=== PATIENT | male | born 1945 | race Caucasian/White ===

== ENCOUNTER 2017-01-01 13:48 | Observation (INO) | payer OTHER ==
[~2017-01-01] VITALS: Ht 182.9 cm; Wt 95.8 kg
[~2017-01-01 13:48] MED LIST: ASPI81 PO; BACL10TA PO; CANA300T PO; FAMO1CHW PO; FINA5TAB2 PO; GLIP5TAB8 PO; GLUCTAB PO; LIBRAX PO; LISI2.5T3 PO; LORTA10 PO; OMEP20CA2 PO; PLAV75TA29 PO; SIMV20TA PO; TOPR50TA PO; [UNRECOGNIZED DRUG - CODE] SL
[2017-01-01 13:51] VITALS: BP 124/64; PULSE 75; RESP 16; TEMP 98.4; O2SAT 96
[2017-01-01] MEDS ORDERED: METO50TA PO (14:13)
[2017-01-01] MEDS ORDERED: HYDR-3535 PO (14:13)
[2017-01-01] MEDS ORDERED: METF1000 PO (14:13)
--- NOTE | 2017-01-01 14:15 | PD ---
HPI Chief Complaint: Skin Problem Time Seen by Provider: 14:08 Travel History International Travel<30 days: No Contact w/Intl Traveler<30days: No Traveled to known affect area: No History of Present Illness HPI 71-year-old male with history of diabetes and peripheral neuropathy presents to the emergency room for evaluation of his toe after stepping on a nail 3 times yesterday. Patient was wearing Crocs when he stepped on a lorenzo nail. He did not realize that he had stepped on it until he saw blood coming from his shoe. When he removed the shoe, he noticed 3 puncture wounds in the proximal, plantar great toe. He denies significant pain because of history of neuropathy. Patient states he noticed great increase in redness, swelling, and bruising just overnight. He saw his bankruptcy manager, Dr. Constantino, 3 days ago for routine debridement of an ulcer on the same toe distally. He called the office today after realizing the injury and they recommended he come to the emergency room because Dr. Constantino is not in his office until tomorrow. Last tetanus was 2007. Denies fever, chills, nausea, and vomiting. Of note, patient reports history of foreign bodies to the distal left great toe. PFSH Past Medical History Hx Anticoagulant Therapy: Yes (PLAVIX) Autoimmune Disease: No Anxiety: No Depression: No Cancer: No Cardiovascular Problems: Yes (STENT 2006, TRIPLE BIPASS 1995) High Cholesterol: Yes Chest Pain: No Diabetes: Yes (METFORMIN) Diminished Hearing: No Endocrine: Yes Gastrointestinal Disorders: No GERD: Yes Glaucoma: No Genitourinary: Yes (ENLARGED PROSTRATE, INCONTANCE) Hepatitis: No Hiatal Hernia: No Hypertension: Yes Musculoskeletal: No Neurologic: No Psychiatric: No Integumentary: Yes (WOUND ON RIGHT GREAT TOE) Sleep Apnea: Yes Thyroid Disease: No Past Surgical History Appendectomy: Yes Body Medical Devices: BLADDER STIMULATOR Cholecystectomy: Yes Coronary Artery Bypass Graft: Yes (X3 1995) Thoracic Surgery: Yes (CABG) Other Surgery: Yes (RECTAL TUMOR 07/09) Social History Alcohol Use: Yes (RARE) Tobacco Use: No Substance Use: No Allergies-Medications (Allergen,Severity, Reaction): Coded Allergies: No Known Allergies (Verified , 01/01/17) Reported Meds & Prescriptions Reported Meds & Active Scripts Active Reported Lortab (Hydrocodone-Acetaminophen) 10-325 Mg Tab 1 Tab PO Q6H PRN Metoprolol Tartrate 50 Mg Tab 50 Mg PO BID Metformin (Metformin HCl) 1,000 Mg Tab 1,000 Mg PO BIDPC With meals Plavix (Clopidogrel Bisulfate) 75 Mg Tab 75 Mg PO DAILY Duo Fusion (Famotidine-Calcium) 10-800 Mg Tab 10-800 Mg PO BID Nitroglycerin SL (Nitroglycerin) 0.6 Mg Subl 0.6 Mg SL DIRECTED PRN ONE TABLET UNDER THE TONGUE NEEDED FOR CHEST PAIN, MAY REPEAT EVERY FIVE MINUTES FOR A TOTAL OF 3 DOSES OR CALL 911 IF NO RELIEF Baclofen 10 Mg Tab 10 Mg PO BID Glipizide 5 Mg Tab 10 Mg PO BIDAC Take 30 minutes before a meal Lisinopril 2.5 Mg Tab 2.5 Mg PO DAILY Simvastatin 20 Mg Tab 20 Mg PO DAILY Aspirin 81 Mg Tab 81 Mg PO DAILY Review of Systems Except as stated in HPI: all other systems reviewed are Neg Physical Exam Narrative GENERAL: Well-nourished, well-developed male in no acute distress. Afebrile. Ambulatory. SKIN: Focused skin assessment warm/dry. There is an indurated area in the proximal, plantar left great toe with surrounding erythema and ecchymosis. The tissue is slightly macerated. No fluctuance. There is a zone of inflammation around with lymphangitis extending up to the distal ankle. Chronic healing ulcer on the distal left toe. HEAD: Normocephalic. EYES: No scleral icterus. No injection or drainage. NECK: Supple, trachea midline. No JVD or lymphadenopathy. CARDIOVASCULAR: Regular rate and rhythm without murmurs, gallops, or rubs. RESPIRATORY: Breath sounds equal bilaterally. No accessory muscle use. EXTREMITY: Limited range of motion of the left great toe secondary to pain and swelling. Less than 2 second capillary refill distally. Moderate to severe edema of the left toe. Data Data Last Documented VS Vital Signs Date Time Temp Pulse Resp B/P Pulse Ox O2 Delivery O2 Flow Rate FiO2 01/01/17 13:51 98.4 75 16 124/64 96 Orders Complete Blood Count With Diff (01/01/17 14:24) Iv Access Insert/Monitor (01/01/17 14:24) Tetanus/Diphtheria Tox Adult (Tetanus/Di (01/01/17 14:30) Comprehensive Metabolic Panel (01/01/17 14:24) Toe (Min 2vws) (01/01/17 ) Vancomycin Inj (Vancomycin Inj) (01/01/17 14:30) Levofloxacin 750 Mg Premix Inj (Levaquin (01/01/17 14:30) Place In Observation (01/01/17 ) Vital Signs (Adult) Q4H (01/01/17 16:02) Activity Bed Rest With Brp (01/01/17 16:02) Intake + Output GALILEO.QSHIFT (01/01/17 16:02) Diet Heart Healthy (01/01/17 Dinner) Sodium Chloride 0.9% Flush (Ns Flush) (01/01/17 16:15) Sodium Chloride 0.9% Flush (Ns Flush) (01/01/17 21:00) Ondansetron Inj (Zofran Inj) (01/01/17 16:15) Basic Metabolic Panel (Bmp) (01/02/17 06:00) Complete Blood Count With Diff (01/02/17 06:00) Enoxaparin Inj (Lovenox Inj) (01/01/17 18:00) Naloxone Inj (Narcan Inj) (01/01/17 16:15) Docusate Sodium-Senna (Kay-Colace) (01/01/17 21:00) Magnesium Hydroxide Liq (Milk Of Magnesi (01/01/17 21:00) Sennosides (Senokot) (01/01/17 21:00) Bisacodyl Supp (Dulcolax Supp) (01/01/17 17:00) Lactulose Liq (Lactulose Liq) (01/01/17 16:15) Admit Order (Ed Use Only) (01/01/17 16:04) Labs Laboratory Tests Test 01/01/17 14:30 White Blood Count 11.3 TH/MM3 Red Blood Count 5.00 MIL/MM3 Hemoglobin 14.4 GM/DL Hematocrit 42.5 % Mean Corpuscular Volume 85.0 FL Mean Corpuscular Hemoglobin 28.7 PG Mean Corpuscular Hemoglobin 33.8 % Concent Red Cell Distribution Width 13.1 % Platelet Count 158 TH/MM3 Mean Platelet Volume 8.9 FL Neutrophils (%) (Auto) 67.5 % Lymphocytes (%) (Auto) 19.0 % Monocytes (%) (Auto) 11.4 % Eosinophils (%) (Auto) 1.2 % Basophils (%) (Auto) 0.9 % Neutrophils # (Auto) 7.7 TH/MM3 Lymphocytes # (Auto) 2.1 TH/MM3 Monocytes # (Auto) 1.3 TH/MM3 Eosinophils # (Auto) 0.1 TH/MM3 Basophils # (Auto) 0.1 TH/MM3 CBC Comment DIFF FINAL Differential Comment Sodium Level 137 MEQ/L Potassium Level 4.4 MEQ/L Chloride Level 102 MEQ/L Carbon Dioxide Level 27.1 MEQ/L Anion Gap 8 MEQ/L Blood Urea Nitrogen 20 MG/DL Creatinine 1.20 MG/DL Estimat Glomerular Filtration 60 ML/MIN Rate Random Glucose 160 MG/DL Calcium Level 8.9 MG/DL Total Bilirubin 2.1 MG/DL Aspartate Amino Transf 18 U/L (AST/SGOT) Alanine Aminotransferase 22 U/L (ALT/SGPT) Alkaline Phosphatase 72 U/L Total Protein 7.3 GM/DL Albumin 3.9 GM/DL [facility] Medical Decision Making Medical Screen Exam Complete: Yes Emergency Medical Condition: Yes Medical Record Reviewed: Yes Differential Diagnosis MRSA, diabetic foot infection, puncture wound Narrative Course 71-year-old male with history of diabetes, peripheral neuropathy, and chronic toe ulcer presents to the emergency room for evaluation of left great toe infection after stepping on a nail 3 times yesterday. Physical exam reveals macerated tissue over the plantar, proximal left great toe with extreme edema, erythema, and ecchymosis surrounding. Lymphangitis is extending up the foot to the ankle. Patient was updated on tetanus. Given his comorbidity of diabetes and chronic diabetic foot ulcer on the same toe, my attending physician and I believe he needs to be brought in for IV antibiotics. IV access established and basic labs obtained. CBC is essentially unremarkable except for very slight leukocytosis of 11.3. CMP is unremarkable other than slightly elevated blood sugar. Patient was given IV vancomycin and Levaquin (because nail went through his shoe) in the emergency room. Tetanus was updated. He will be admitted to hospitalist with consult to podiatry. I spoke to Dr. Gusman who agrees to admit this patient to her service. Physician Communication Physician Communication I spoke to Dr. Gusman who has accepted this patient to her service. Diagnosis Primary Impression: Toe infection Condition: Stable Madhavi Arvizu Jan 01, 2017 14:15
[2017-01-01] MEDS ORDERED: LEVOFLOXACIN 750 MG PREMIX INJ 150 ML IV ONE (14:30)
[2017-01-01] MEDS ORDERED: VANCOMYCIN INJ 1,250 MG in SODIUM CHLOR 0.9% 250 ML INJ 250 ML IV ONE (14:30)
[2017-01-01] MEDS ORDERED: TETANUS/DIPHTHERIA TOXOID ADULT 0.5 ML VIAL IM ONE (14:30)
[2017-01-01 14:49] LABS: AUTOMATED NEUTROPHIL # 7.7 TH/MM3 (1.8-7.7); BASOPHIL # 0.1 TH/MM3 (0-0.2); BASOPHIL % 0.9 % (0.0-2.0); EOSINOPHIL # 0.1 TH/MM3 (0-0.4); EOSINOPHIL % 1.2 % (0.0-4.0); HEMATOCRIT 42.5 % (39.0-51.0); HEMO FLAGS DIFF FINAL; LYMPHOCYTE # 2.1 TH/MM3 (1.0-4.8); MEAN CORPUSCULAR HEMOGLOBIN 28.7 PG (27.0-34.0); MEAN CORPUSCULAR HGB CONC 33.8 % (32.0-36.0); MONO % 11.4 % (0.0-8.0); NEUT % 67.5 % (16.0-70.0); PLATELET COUNT 158 TH/MM3 (150-450); RED CELL DISTRIBUTION WIDTH 13.1 % (11.6-17.2); WHITE BLOOD COUNT 11.3 TH/MM3 (4.0-11.0)
--- NOTE | 2017-01-01 15:03 | RADRPT ---
EXAM DATE/TIME: 01/01/2017 14:36 [facility] COMPARISON: No previous studies available for comparison. EXTERNAL COMPARISON : [facility] () INDICATIONS : Patient with neruopathy of left foot stepped on lg nail on plantar surface of left great toe yes terday. Patient also has a non healing wound to the distal tip of great toe from rubbing on shoe. Jessica salinas also states he has had this foot imaged at [facility] within the last year & was told there were some foreign bodies in his left great toe. MEDICAL HISTORY : Hypercholesterolemia. Hypertension Gastroesophageal reflux disease. Diabetic, Circulatory probelm s. Sleep apnea. IBS. SURGICAL HISTORY : CABG. Appendectomy. Cholecystectomy. Cardiac catheterization with stent placement. Right shoulder. ENCOUNTER: Initial ACUITY: 2 days PAIN SCORE: 0/10 LOCATION: Left great toe. FINDINGS: There are 4 separate metallic density foreign bodies in the plantar aspect of the proximal first digi t. Soft tissue defect is seen at the tip of the digit. Osseous structures appear intact. CONCLUSION: 1. Four separate thin linear metallic density foreign bodies in the plantar aspect of the proximal fi rst digit. Nolan Ramos MD on January 01, 2017 at 14:58 Board Certified Radiologist. This report was verified electronically.
[2017-01-01 15:10] LABS: CHLORIDE 102 MEQ/L (98-107); POTASSIUM 4.4 MEQ/L (3.5-5.1); SODIUM (NA) 137 MEQ/L (136-145)
[2017-01-01 15:13] LABS: ANION GAP 8 MEQ/L (5-15); BICARBONATE 27.1 MEQ/L (21.0-32.0); BLOOD UREA NITROGEN 20 MG/DL (7-18)
[2017-01-01 15:16] LABS: ALT (GPT) 22 U/L (12-78)
[2017-01-01 15:17] LABS: AST (GOT) 18 U/L (15-37); GLOMERULAR FILTRATION RATE 60 ML/MIN (>89)
[2017-01-01 15:18] LABS: TOTAL BILIRUBIN ADULT 2.1 MG/DL (0.2-1.0)
[2017-01-01 15:19] LABS: ALKALINE PHOSPHATASE 72 U/L (45-117)
[2017-01-01] MEDS ORDERED: NALOXONE HCL 0.4 MG/ML AMP IV PRN (16:15)
[2017-01-01] MEDS ORDERED: SODIUM CHLORIDE 0.9% FLUSH 10 ML FLUSH IV FLUSH PRN (16:15)
[2017-01-01] MEDS ORDERED: ONDANSETRON HCL 4 MG/2 ML VIAL IVP PRN (16:15)
[2017-01-01] MEDS ORDERED: LACTULOSE SYRUP 20 GM/30 ML CUP PO PRN (16:15)
[2017-01-01] MEDS ORDERED: BISACODYL 10 MG SUPP RECTAL PRN (17:00)
--- NOTE | 2017-01-01 17:30 | HHI.HP ---
HPI Service [facility] Primary Care Physician Non-Staff Admission Diagnosis left toe cellulitis Diagnoses: (1) Toe infection Diagnosis: Principal Chief Complaint: Stepped on a nail 3 times Travel History International Travel<30 Days: No Contact w/Intl Traveler <30 Da: No Traveled to Known Affected Are: No History of Present Illness Written by Dean Thompson, acting as scribe for Dr. Gusman on 01/01/17 at 17: 20. 71 year-old male with known history of diabetes, hypertension, hyperlipidemia, coronary artery disease, peripheral vascular disease who presented to the hospital because of left great toe edema. Patient states that he is in normal state of health being followed by his laborer stores Dr. Constantino on a regular basis with their on Thursday for ulcer debridement. He subsequently stepped on a lg nail 3 times and started developing worsening swelling. He states that he has neuropathy so there has been no pain. Contacted his laborer stores office who recommended him to come to the hospital for evaluation. Patient was evaluated in emergency department and found to have puncture wounds on the bottom surface of his left great toe. Is recommended by the ER that the patient be admitted for further evaluation management. Patient laborer stores does return to his office tomorrow. Patient denies any fever, chills, pain. Review of Systems Integumentary: COMPLAINS OF: Abnormal pigmentation (left great toe) Except as stated in HPI: all other systems reviewed are Neg Past Family Social History Past Medical History Hypertension Hyperlipidemia Diabetes Peripheral vascular disease Coronary artery disease Affective sleep apnea Benign prostatic hypertrophy Past Surgical History Cholecystectomy Coronary artery bypass surgery Appendectomy Right shoulder surgery Rectal surgery Right foot surgery Bladder surgery with bladder stimulator Reported Medications Reported Meds & Active Scripts Active Reported Lortab (Hydrocodone-Acetaminophen) 10-325 Mg Tab 1 Tab PO Q6H PRN Metoprolol Tartrate 50 Mg Tab 50 Mg PO BID Metformin (Metformin HCl) 1,000 Mg Tab 1,000 Mg PO BIDPC With meals Plavix (Clopidogrel Bisulfate) 75 Mg Tab 75 Mg PO DAILY Duo Fusion (Famotidine-Calcium) 10-800 Mg Tab 10-800 Mg PO BID Nitroglycerin SL (Nitroglycerin) 0.6 Mg Subl 0.6 Mg SL DIRECTED PRN ONE TABLET UNDER THE TONGUE NEEDED FOR CHEST PAIN, MAY REPEAT EVERY FIVE MINUTES FOR A TOTAL OF 3 DOSES OR CALL 911 IF NO RELIEF Baclofen 10 Mg Tab 10 Mg PO BID Glipizide 5 Mg Tab 10 Mg PO BIDAC Take 30 minutes before a meal Lisinopril 2.5 Mg Tab 2.5 Mg PO DAILY Simvastatin 20 Mg Tab 20 Mg PO DAILY Aspirin 81 Mg Tab 81 Mg PO DAILY Allergies: Coded Allergies: No Known Allergies (Verified , 01/01/17) Family History Reviewed and unremarkable Social History Patient quit smoking 20 years ago, prior to that he smoked a pack a cigarettes a day while he was in the [employer]. Denies any alcohol or illicit drugs Physical Exam Vital Signs Vital Signs Date Time Temp Pulse Resp B/P Pulse Ox O2 Delivery O2 Flow Rate FiO2 01/01/17 13:51 98.4 75 16 124/64 96 Physical Exam GENERAL: Well-developed, well-nourished, in no acute distress. alert and orientated HEENT: Head is normocephalic Facial features are symmetric. Eyes: Pupils equal round reactive to light. Extraocular muscles are intact. Conjunctivae were clear. Oropharyngeal: Pharynx without any erythema edema. Tongue is midline without deviation. Buccal mucosa is moist without any masses or lesions NECK: Supple without any masses. Trachea midline no deviation. CARDIAC: Regular rhythm, regular rate. No murmurs gallops or rubs. LUNGS: Clear to auscultation bilaterally. No wheeze. No use of accessory muscles on inspiration or expiration. ABDOMEN: Soft, nontender. Nondistended. Bowel sounds heard in all 4 quadrants. Negative rebound, negative guarding EXTREMITIES: No edema, pulses are equal bilaterally. NEUROLOGY: Mood and affect appear appropriate. Cranial nerves II through XII grossly intact. Muscle strength 5/5 in upper and lower extremities bilaterally. Deep tendon reflexes are 2+ in upper and lower extremities bilaterally. LEFT LOWER EXTREMITY. Patient does have mild discoloration of the toe it is blanchable. There is an ulceration noted at the tip of the first great toe without any signs of infection. There is puncture wound noted approximately 2.5 cm from the tip of his left great toe. Pulses are bounding. There is some erythema noted on the dorsal surfaces foot between the first and second digit Laboratory Laboratory Tests Test 01/01/17 14:30 White Blood Count 11.3 Red Blood Count 5.00 Hemoglobin 14.4 Hematocrit 42.5 Mean Corpuscular Volume 85.0 Mean Corpuscular Hemoglobin 28.7 Mean Corpuscular Hemoglobin 33.8 Concent Red Cell Distribution Width 13.1 Platelet Count 158 Mean Platelet Volume 8.9 Neutrophils (%) (Auto) 67.5 Lymphocytes (%) (Auto) 19.0 Monocytes (%) (Auto) 11.4 Eosinophils (%) (Auto) 1.2 Basophils (%) (Auto) 0.9 Neutrophils # (Auto) 7.7 Lymphocytes # (Auto) 2.1 Monocytes # (Auto) 1.3 Eosinophils # (Auto) 0.1 Basophils # (Auto) 0.1 CBC Comment DIFF FINAL Differential Comment Sodium Level 137 Potassium Level 4.4 Chloride Level 102 Carbon Dioxide Level 27.1 Anion Gap 8 Blood Urea Nitrogen 20 Creatinine 1.20 Estimat Glomerular Filtration 60 Rate Random Glucose 160 Calcium Level 8.9 Total Bilirubin 2.1 Aspartate Amino Transf 18 (AST/SGOT) Alanine Aminotransferase 22 (ALT/SGPT) Alkaline Phosphatase 72 Total Protein 7.3 Albumin 3.9 Result Diagram: 01/01/17 1430 01/01/17 1430 Imaging Last Impressions Toe X-Ray 01/01/17 0000 Signed Impressions: Service Date/Time: December 14:36 - CONCLUSION: 1. Four separate thin linear metallic density foreign bodies in the plantar aspect of the proximal first digit. Nolan Ramos MD Assessment and Plan Assessment and Plan Left great toe puncture wound with cellulitis X-ray does not indicate any acute abnormality does show metallic densities Patient's laborer stores will be consulted for recommendations We'll start cefepime IV Diabetes Accu-Cheks with sliding scale insulin Hypertension, hyperlipidemia, coronary artery disease Home medications will be continued DVT prevention Subcutaneous Lovenox This note was transcribed by ena Thompson. I, Dr. Cheri Gusman personally performed the history, physical exam, and medical decision making; and confirmed the accuracy of the information in the transcribed note. Authenticated by Dr. Cheri Gusman on 01/01/17 at 17:20. Code Status Full code Discussed Condition With ER physician, patient, family bedside Dean Thompson Jan 01, 2017 17:29 Cheri Gusman MD Jan 02, 2017 16:13
[2017-01-01] MEDS: CEFEPIME INJ 2,000 MG in SODIUM CHLORIDE 0.9% INJ 100 ML IV SCH (18:05)
[2017-01-01] MEDS: ENOXAPARIN SODIUM 40 MG/0.4 ML SYRINGE SQ SCH (18:05)
[2017-01-01 18:10] VITALS: BP 109/69; PULSE 80; RESP 14; O2SAT 96
[2017-01-01 20:45] VITALS: BP 139/82; PULSE 47; RESP 20; TEMP 99.6; O2SAT 98
[2017-01-01] MEDS ORDERED: SENNOSIDES 8.6 MG TAB PO PRN (21:00)
[2017-01-01] MEDS ORDERED: MAGNESIUM HYDROXIDE SUSP 30 ML CUP PO PRN (21:00)
[2017-01-01] MEDS: DOCUSATE SODIUM 50 MG/SENNA 8.6 MG TAB PO SCH (21:00)
[2017-01-01] MEDS ORDERED: DEXTROSE 50% IN WATER 50 ML VIAL(D50) IV PRN (23:15)
[2017-01-01] MEDS ORDERED: GLUCAGON 1 MG/ML VIAL OTHER PRN (23:15)
[2017-01-01] MEDS ORDERED: BACLOFEN 10 MG TAB PO PRN (23:15)
[2017-01-01] MEDS: BACLOFEN 10 MG TAB PO PRN (23:30)
[2017-01-01] MEDS ORDERED: PILL SPLITTER OTHER PRN (23:30)
[2017-01-01] MEDS: ACETAMINOPHEN/HYDROcodone 325 MG/10 MG TAB PO PRN (23:30)
[2017-01-01] MEDS: SODIUM CHLORIDE 0.9% FLUSH 10 ML FLUSH IV FLUSH SCH (23:31)
[2017-01-02] VITALS: BP_SYST 120; BP_SYST 136; BP_DIAS 85; BP_DIAS 88; PULSE 74; RESP 20; TEMP 99.5; O2SAT 94; O2SAT 98
[2017-01-02 04:00] VITALS: BP 134/75; PULSE 76; RESP 20; TEMP 96.3; O2SAT 98
[2017-01-02] MEDS: CEFEPIME INJ 2,000 MG in SODIUM CHLORIDE 0.9% INJ 100 ML IV SCH ×2 (05:49→17:00)
[2017-01-02 06:50] LABS: AUTOMATED NEUTROPHIL # 5.6 TH/MM3 (1.8-7.7); BASOPHIL # 0.1 TH/MM3 (0-0.2); BASOPHIL % 0.7 % (0.0-2.0); EOSINOPHIL # 0.2 TH/MM3 (0-0.4); EOSINOPHIL % 1.8 % (0.0-4.0); HEMATOCRIT 42.6 % (39.0-51.0); HEMO FLAGS DIFF FINAL; LYMPH % 23.4 % (9.0-44.0); LYMPHOCYTE # 2.1 TH/MM3 (1.0-4.8); MEAN CELL VOLUME 86.5 FL (80.0-100.0); MEAN CORPUSCULAR HEMOGLOBIN 28.5 PG (27.0-34.0); MONO % 11.7 % (0.0-8.0); NEUT % 62.4 % (16.0-70.0); PLATELET COUNT 136 TH/MM3 (150-450); RED BLOOD COUNT 4.93 MIL/MM3 (4.50-5.90); RED CELL DISTRIBUTION WIDTH 13.4 % (11.6-17.2); WHITE BLOOD COUNT 9.1 TH/MM3 (4.0-11.0)
[2017-01-02 07:00] LABS: POTASSIUM 4.3 MEQ/L (3.5-5.1)
[2017-01-02] MEDS: PRAVASTATIN SOD 40 MG TAB PO SCH (08:25)
[2017-01-02] MEDS: LISINOPRIL 5 MG TAB PO SCH (08:25)
[2017-01-02] MEDS: METOPROLOL TARTRATE 50 MG TAB PO SCH ×2 (08:25→20:24)
[2017-01-02] MEDS: DOCUSATE SODIUM 50 MG/SENNA 8.6 MG TAB PO SCH ×2 (08:25→20:25)
[2017-01-02] MEDS: SODIUM CHLORIDE 0.9% FLUSH 10 ML FLUSH IV FLUSH SCH ×2 (08:26→20:28)
[2017-01-02] MEDS: ACETAMINOPHEN/HYDROcodone 325 MG/10 MG TAB PO PRN ×2 (08:26→17:05)
[2017-01-02] MEDS: INSULIN ASPART SUPPLEMENTAL SCALE SQ SCH ×4 (08:29→20:25)
[2017-01-02] MEDS ORDERED: FAMOTIDINE PO SCH (09:00)
[2017-01-02] MEDS ORDERED: [UNRECOGNIZED DRUG - OTHER] PO SCH (09:00)
[2017-01-02 09:15] VITALS: BP 142/100; PULSE 74; RESP 19; TEMP 98.6; O2SAT 95
--- NOTE | 2017-01-02 12:01 | HHI.PR ---
Subjective Remarks Written by Dean Thompson, acting as scribe for Dr. Gusman on 01/02/17 at 11: 57. The toe looks much improved. The patient and family agree that it does look better. They have been trying to contact his carrier blower office to get evaluation. He denies any fever or chills. Awaiting podiatry for recommendations. Objective Vitals Vital Signs Date Time Temp Pulse Resp B/P Pulse Ox O2 Delivery O2 Flow Rate FiO2 01/02/17 09:26 18 01/02/17 09:15 98.6 74 19 142/100 95 01/02/17 04:00 96.3 76 20 134/75 98 01/02/17 00:00 99.5 74 20 136/85 98 01/02/17 00:00 99.5 74 20 120/88 94 01/01/17 20:45 99.6 47 20 139/82 98 01/01/17 18:10 80 14 109/69 96 Room Air 01/01/17 13:51 98.4 75 16 124/64 96 I/O 01/01/17 01/01/17 01/01/17 01/02/17 01/02/17 01/02/17 07:00 15:00 23:00 07:00 15:00 23:00 Intake Total 740 ml 580 ml Balance 740 ml 580 ml Intake Oral 240 ml 480 ml IV Total 500 ml 100 ml # Voids 1 2 # Bowel Movements 1 Result Diagram: 01/02/17 0623 01/02/17 0623 Imaging Last Impressions Toe X-Ray 01/01/17 0000 Signed Impressions: Service Date/Time: December 14:36 - CONCLUSION: 1. Four separate thin linear metallic density foreign bodies in the plantar aspect of the proximal first digit. Nolan Ramos MD Objective Remarks GENERAL: Well-developed, well-nourished, alert and orientated HEENT: Head is normocephalic without any lesions or masses noted. Facial features are symmetric. Eyes: Extraocular muscles are intact. Conjunctivae were clear. NECK: Trachea midline no deviation. CARDIAC: Regular rhythm, regular rate. No murmurs gallops or rubs. LUNGS: Clear to auscultation bilaterally. No wheeze. ABDOMEN: Soft, nontender. Nondistended. Bowel sounds heard in all 4 quadrants. EXTREMITIES: No edema, pulses are equal bilaterally. NEUROLOGY: Mood and affect appear appropriate. Cranial nerves II through XII grossly intact. Moving all extremities, speech is clear LEFT LOWER EXTREMITY. Pt's great toe much improved. Erythema resolving. There is an ulceration noted at the tip of the first great toe without any signs of infection. There is puncture wound noted approximately 2.5 cm from the tip of his left great toe. Pulses are bounding. Urinary Catheter: No Vascular Central Line Catheter: No A/P Assessment and Plan Left great toe puncture wound with cellulitis X-ray does not indicate any acute abnormality does show metallic densities Patient's carrier blower was consulted for recommendations, however went to [facility] podiatry service. Awaiting recs Continue cefepime IV Diabetes Accu-Cheks with sliding scale insulin Hypertension, hyperlipidemia, coronary artery disease Home medications will be continued DVT prevention Subcutaneous Lovenox This note was transcribed by ena Thompson. I, Dr. Cheri Gusman personally performed the history, physical exam, and medical decision making; and confirmed the accuracy of the information in the transcribed note. Authenticated by Dr. Cheri Gusman on 01/02/17 at 11:57.. Dean Thompson Jan 02, 2017 12:01 Cheri Gusman MD Jan 02, 2017 16:11
[2017-01-02 12:37] VITALS: BP 133/91; PULSE 66; RESP 19; TEMP 96.6; O2SAT 99
[2017-01-02] MEDS: ENOXAPARIN SODIUM 40 MG/0.4 ML SYRINGE SQ SCH (17:00)
[2017-01-02 20:00] VITALS: BP 128/86; PULSE 68; RESP 20; TEMP 96.8; O2SAT 97
--- NOTE | 2017-01-02 21:53 | MB ---
cc: TIFFANIE LINDSEYM DATE OF CONSULTATION 01/02/17 1900 hours 1947 REASON FOR CONSULTATION Left foot wound. HISTORY OF PRESENT ILLNESS The patient is a 71-year-old male with longstanding history of diabetes, hypertension, hyperlipidemia, CAD, PVD. He presented to the hospital for left great toe edema. He is a patient of Dr. Constantino who has been seen in a regular basis for debridement. He stepped on a lg nail several times on his left hallux and presented to the ED for additional management. Six point review of systems unremarkable. PAST MEDICAL HISTORY Per HPI. PAST SURGICAL HISTORY 1. Cholecystectomy, 2. Coronary artery bypass 3. Appendectomy 4. Right shoulder surgery, 5. Rectal surgery 6. Right foot surgery, 7. Bladder surgery. MEDICATIONS 1. Lortab. 2. Metoprolol. 3. Metformin. 4. Plavix 5. . 6. Baclofen 7. Glipizide 8. Lisinopril. 9. Simvastatin. 10. Aspirin. ALLERGIES NKDA. FAMILY HISTORY Noncontributory. SOCIAL HISTORY Quit smoking 20 years ago. Denies alcohol or illicit drugs. PHYSICAL EXAMINATION Left DP and PT is diminished. RACING BOARD MARKER is less than 5 seconds. He has some bruising to the plantar sulcus of the left hallux. There is some ulceration plantarly. There is a distal ulceration of the hallux at distal tip. Both wounds are fibrogranular in nature. There is no purulence noted. No pain on range of motion. Protective sensation intact. LABORATORY DATA WBC on a 01/02/17 9.1, RBC of 4.93, H&H 14.1 and 42.6. IMAGING STUDIES Left foot x-rays completed on 01/01/17 with linear metallic foreign bodies in the distal aspect of the first digit. This is comparable to previous x-rays the patient had at [facility] in 2016. ASSESSMENT/PLAN 1. Left hallux puncture wound. 2. Diabetes 3. PVD. PLAN The patient is to get a blood flow study to rule out PVD as well as a WBC Spect scan to rule out any bony infection given his longstanding hallux wound. If his WBC scan is unremarkable and his blood flow studies are unremarkable, he can be discharged with oral antibiotics and follow up with Dr. Constantino within a week of discharge. We will continue to follow the patient while in-house. Tiffanie Lindsey DPM SR/ /8:45 PM /9:40 PM
[2017-01-02] MEDS: COLLAGENASE OINT 30 GM TUBE TOPICAL SCH (22:38)
[2017-01-03] VITALS: BP 124/68; PULSE 51; RESP 20; TEMP 97.7; O2SAT 98
[2017-01-03] MEDS: CEFEPIME INJ 2,000 MG in SODIUM CHLORIDE 0.9% INJ 100 ML IV SCH ×2 (05:49→17:33)
[2017-01-03 08:00] VITALS: BP 121/74; PULSE 63; RESP 18; TEMP 97.2; O2SAT 97
[2017-01-03] MEDS: DOCUSATE SODIUM 50 MG/SENNA 8.6 MG TAB PO SCH ×2 (08:48→20:53)
[2017-01-03] MEDS: PRAVASTATIN SOD 40 MG TAB PO SCH (08:49)
[2017-01-03] MEDS: METOPROLOL TARTRATE 50 MG TAB PO SCH ×2 (08:49→20:54)
[2017-01-03] MEDS: LISINOPRIL 5 MG TAB PO SCH (08:50)
[2017-01-03] MEDS: INSULIN ASPART SUPPLEMENTAL SCALE SQ SCH ×4 (08:54→20:33)
[2017-01-03] MEDS: COLLAGENASE OINT 30 GM TUBE TOPICAL SCH (09:00)
[2017-01-03] MEDS: ACETAMINOPHEN/HYDROcodone 325 MG/10 MG TAB PO PRN ×2 (09:07→21:07)
[2017-01-03] MEDS: SODIUM CHLORIDE 0.9% FLUSH 10 ML FLUSH IV FLUSH SCH ×2 (09:16→20:54)
--- NOTE | 2017-01-03 10:35 | HHI.PR ---
Subjective Remarks Written by Dean Thompson, acting as scribe for Dr. Gusman on 01/03/17 at 10: 33. Patient denies any new complaints. Wonders when he can go home. Eating well with normal bowel movements. Denies any pain Objective Vitals Vital Signs Date Time Temp Pulse Resp B/P Pulse Ox O2 Delivery O2 Flow Rate FiO2 01/03/17 08:00 97.2 63 18 121/74 97 01/03/17 00:00 97.7 51 20 124/68 98 01/02/17 20:00 96.8 68 20 128/86 97 01/02/17 18:05 18 01/02/17 12:37 96.6 66 19 133/91 99 I/O 01/02/17 01/02/17 01/02/17 01/03/17 01/03/17 01/03/17 07:00 15:00 23:00 07:00 15:00 23:00 Intake Total 580 ml 550 ml 400 ml 480 ml Balance 580 ml 550 ml 400 ml 480 ml Intake Oral 480 ml 550 ml 300 ml 480 ml IV Total 100 ml 100 ml # Voids 2 2 2 # Bowel Movements 1 Result Diagram: 01/02/17 0623 01/02/17 0623 Imaging Last Impressions Toe X-Ray 01/01/17 0000 Signed Impressions: Service Date/Time: December 14:36 - CONCLUSION: 1. Four separate thin linear metallic density foreign bodies in the plantar aspect of the proximal first digit. Nolan Ramos MD Objective Remarks GENERAL: Well-developed, well-nourished laying in bed HEENT: Head is normocephalic Eyes: Extraocular muscles are intact. NECK: Trachea midline no deviation. No JVD, CARDIAC: Regular rhythm, regular rate. No murmurs LUNGS: Clear to auscultation bilaterally. No wheeze. ABDOMEN: Soft, nontender. Nondistended. Negative rebound, negative guarding EXTREMITIES: No edema, moves extremities. NEUROLOGY: Mood and affect appear appropriate. Cranial nerves II through XII grossly intact. Moving all extremities, speech is clear LEFT LOWER EXTREMITY. Patient does have mild discoloration of the toe it is blanchable. There is an ulceration noted at the tip of the first great toe without any signs of infection. There is puncture wounds noted approximately 2.5 cm from the tip of his left great toe. Pulses are bounding. There was erythema noted on admission, however has resolved Urinary Catheter: No Vascular Central Line Catheter: No A/P Assessment and Plan Left great toe puncture wound with cellulitis X-ray does not indicate any acute abnormality does show metallic densities Wharf Worker following. ordered WBC scan, NICHOLAS study, if those are unremarkable that patient may be discharged with outpatient follow-up w po abx Continue cefepime IV Diabetes Accu-Cheks with sliding scale insulin Hypertension, hyperlipidemia, coronary artery disease Home medications will be continued DVT prevention Subcutaneous Lovenox This note was transcribed by ena Thompson. I, Dr. Cheri Gusman personally performed the history, physical exam, and medical decision making; and confirmed the accuracy of the information in the transcribed note. Authenticated by Dr. Cheri Gusman on 01/03/17 at 1033. Dean Thompson Jan 03, 2017 10:34 Cheri Gusman MD Jan 03, 2017 14:01
[2017-01-03 12:00] VITALS: BP 139/76; PULSE 58; RESP 20; TEMP 98.5; O2SAT 97
[2017-01-03 16:00] VITALS: BP 129/79; PULSE 60; RESP 18; TEMP 98.3; O2SAT 97
[2017-01-03] MEDS: ENOXAPARIN SODIUM 40 MG/0.4 ML SYRINGE SQ SCH (17:36)
[2017-01-03 20:00] VITALS: BP 129/67; PULSE 74; RESP 20; TEMP 98.5; O2SAT 96
[2017-01-03] MEDS: BACLOFEN 10 MG TAB PO PRN (21:06)
--- NOTE | 2017-01-03 22:59 | RADRPT ---
EXAM DATE/TIME: 01/03/2017 00:00 [facility] COMPARISON: No previous studies available for comparison. INDICATIONS : LEFT TOE CELLULITIS TECHNIQUE: Four-cuff ankle and brachial pressures were obtained. Pulse cuff waveform tracings of the ankles were recorded, and ankle-brachial indices were calculated. PRESSURES (mmHg): Brachial (arm): Right 160 Left IV SITE Ankle: Right 172 Left 170 NICHOLAS: Right 1.07 Left 1.06 PULSED CUFF WAVEFORMS: Demonstrate normal amplitude bilaterally. CONCLUSION: Unremarkable ankle brachial indices. Diomedes Ayers MD on January 03, 2017 at 22:57 Board Certified Radiologist. This report was verified electronically.
[2017-01-04] VITALS: BP 97/61; PULSE 52; RESP 20; TEMP 96.2; O2SAT 95
[2017-01-04] MEDS: CEFEPIME INJ 2,000 MG in SODIUM CHLORIDE 0.9% INJ 100 ML IV SCH (06:05)
[2017-01-04] MEDS: INSULIN ASPART SUPPLEMENTAL SCALE SQ SCH ×2 (06:09→12:39)
[2017-01-04 08:00] VITALS: BP 126/76; PULSE 65; RESP 18; TEMP 98; O2SAT 99
[2017-01-04] MEDS: PRAVASTATIN SOD 40 MG TAB PO SCH (08:56)
[2017-01-04] MEDS: METOPROLOL TARTRATE 50 MG TAB PO SCH (08:56)
[2017-01-04] MEDS: DOCUSATE SODIUM 50 MG/SENNA 8.6 MG TAB PO SCH (08:56)
[2017-01-04] MEDS: SODIUM CHLORIDE 0.9% FLUSH 10 ML FLUSH IV FLUSH SCH (08:56)
[2017-01-04] MEDS: LISINOPRIL 5 MG TAB PO SCH (08:58)
[2017-01-04] MEDS: ACETAMINOPHEN/HYDROcodone 325 MG/10 MG TAB PO PRN (09:03)
[2017-01-04] MEDS: COLLAGENASE OINT 30 GM TUBE TOPICAL SCH (09:05)
--- NOTE | 2017-01-04 10:27 | RADRPT ---
EXAM DATE/TIME: 01/03/2017 12:25 [facility] COMPARISON: TOE LEFT 1ST DIGIT (MIN 2VWS), January 01, 2017, 14:36. INDICATIONS : Left great toe infection. Abscess. DOSE: 20.7 mCi Tc99m Ceretec labeled white blood cells IV SPECT IMAGIN hrs, 20 hrs IMAGNG: SPECT/CT imaging with fusion was performed. RADIATION DOSE: 5.63 CTDIvol (mGy) ; Multiple Day Study MEDICAL HISTORY : Cardiovascular disease. Hypertension. Diabetes mellitus type 2. SURGICAL HISTORY : CABG Cholecystectomy. Appendectomy. ENCOUNTER: Initial ACUITY: 1 day PAIN SCALE: 3/10 LOCATION: Left Foot. TECHNIQUE: Following the in vitro labeling of autologous white cells and reinjection, whole body scan was perfor med at the specified times. SPECT imaging was performed at the specified time in sagittal, axial and coronal planes. Attenuation correction was performed with the computed tomography and both the atten uation correction and non-attenuation corrected data sets were reviewed. FINDINGS: There are 2 separate foci of increased activity within the left first digit. These are located medial ly adjacent to the distal phalanx and at the tip of the first digit distal to the distal phalanx. The se areas of abnormal activity are adjacent to but not within the distal phalanx. The distal phalanx d emonstrates no periosteal reaction or erosion. As described on prior radiographs there are 3 linear m etallic foreign bodies. The visualized surrounding structures demonstrate no acute finding. CONCLUSION: 1. There are 2 foci of abnormal activity in the distal first digit of the left foot. These are locate d in the soft tissues medial and distal to the distal phalanx indicating soft tissue infection. There are no findings to indicate osteomyelitis. 2. As described on prior radiographs there are 3 or 4 linear metallic radiopaque foreign bodies in th e plantar aspect soft tissues adjacent to the distal phalanx. Bladimir Aparicio MD on January 04, 2017 at 10:20 Board Certified Radiologist. This report was verified electronically.
--- NOTE | 2017-01-04 11:41 | HHI.DCPOC ---
Discharge Care Plan Diagnosis: (1) Toe infection Goals to Promote Your Health * To prevent worsening of your condition and complications * To maintain your health at the optimal level Directions to Meet Your Goals Take your medications as prescribed Follow your dietary instruction Follow activity as directed Keep your appointments as scheduled Take your immunizations and boosters as scheduled If your symptoms worsen call your PCP, if no PCP go to Urgent Care Center or Emergency Room Smoking is Dangerous to Your Health. Avoid second hand smoke Call the 24-hour hour crisis hotline for domestic abuse at Dean Thompson Jan 04, 2017 11:41
[2017-01-04] MEDS ORDERED: CIPR-9 PO (11:53)
[2017-01-04 12:00] VITALS: BP 118/77; PULSE 58; RESP 18; TEMP 97.2; O2SAT 96
--- NOTE | 2017-01-04 12:04 | HHI.DS ---
Discharge Summary Admission Date Jan 01, 2017 at 16:06 Discharge Date: Jan 04, 2017 Admitting Diagnosis left toe cellulitis (1) Toe infection ICD Code: L08.9 Diagnosis: Principal Procedures NICHOLAS studies were performed which were normal Brief History - From Admission 71 year-old male with known history of diabetes, hypertension, hyperlipidemia, coronary artery disease, peripheral vascular disease who presented to the hospital because of left great toe edema. Patient states that he is in normal state of health being followed by his accessioner Dr. Constantino on a regular basis with their on Thursday for ulcer debridement. He subsequently stepped on a lg nail 3 times and started developing worsening swelling. He states that he has neuropathy so there has been no pain. Contacted his accessioner office who recommended him to come to the hospital for evaluation. Patient was evaluated in emergency department and found to have puncture wounds on the bottom surface of his left great toe. Is recommended by the ER that the patient be admitted for further evaluation management. Patient accessioner does return to his office tomorrow. Patient denies any fever, chills, pain. CBC/BMP: 01/02/17 0623 01/02/17 0623 Significant Findings Laboratory Tests Test 01/01/17 01/02/17 14:30 06:23 White Blood Count 11.3 TH/MM3 (4.0-11.0) Monocytes (%) (Auto) 11.4 % 11.7 % (0.0-8.0) (0.0-8.0) Monocytes # (Auto) 1.3 TH/MM3 1.1 TH/MM3 (0-0.9) (0-0.9) Blood Urea Nitrogen 20 MG/DL (7-18) 19 MG/DL (7-18) Estimat Glomerular Filtration 60 ML/MIN (>89) 74 ML/MIN (>89) Rate Random Glucose 160 MG/DL 188 MG/DL (74-106) (74-106) Total Bilirubin 2.1 MG/DL (0.2-1.0) Platelet Count 136 TH/MM3 (150-450) Imaging Last Impressions Tumor Localization 01/03/17 0000 Signed Impressions: Service Date/Time: Tuesday, January 03, 2017 12:25 - CONCLUSION: 1. There are 2 foci of abnormal activity in the distal first digit of the left foot. These are located in the soft tissues medial and distal to the distal phalanx indicating soft tissue infection. There are no findings to indicate osteomyelitis. 2. As described on prior radiographs there are 3 or 4 linear metallic radiopaque foreign bodies in the plantar aspect soft tissues adjacent to the distal phalanx. Bladimir Aparicio MD Toe X-Ray 01/01/17 0000 Signed Impressions: Service Date/Time: December 14:36 - CONCLUSION: 1. Four separate thin linear metallic density foreign bodies in the plantar aspect of the proximal first digit. Nolan Ramos MD PE at Discharge GENERAL: Well-developed, well-nourished laying in bed HEENT: Head is normocephalic Eyes: Extraocular muscles are intact. NECK: Trachea midline no deviation. No JVD, CARDIAC: Regular rhythm, regular rate. No murmurs LUNGS: Clear to auscultation bilaterally. No wheeze. ABDOMEN: Soft, nontender. Nondistended. Negative rebound, negative guarding EXTREMITIES: No edema, moves extremities. NEUROLOGY: Mood and affect appear appropriate. Cranial nerves II through XII grossly intact. Moving all extremities, speech is clear LEFT LOWER EXTREMITY. Patient does have mild discoloration of the toe it is blanchable. There is an ulceration noted at the tip of the first great toe without any signs of infection. There is puncture wounds noted approximately 2.5 cm from the tip of his left great toe. Pulses are bounding. There was erythema noted on admission, however has resolved Pt update on day of discharge Pt feeling well. Denies any pain, SOB, n/v. Eager to go home Hospital Course 71 year-old male who recently presented to hospital because of left great toe swelling and wound. Patient is followed on a regular basis by Dr. Constantino for chronic toe ulceration, however patient did step on a lg nail multiple times and developed puncture wounds in the same toe that he is being managed for by Dr. Constantino. Patient came to emergency department for evaluation and was admitted for toe cellulitis. Patient was admitted with IV antibiotics to include cefepime for diabetic foot wound. Patient so improved significantly. Podiatry was consulted who recommended NICHOLAS studies which were normal as well as WBC scan which did not indicate any osteomyelitis. They indicated that those tests are negative then patient may be discharged with outpatient follow-up with Dr. Constantino. Case was discussed with podiatry and they are in agreement with patient being discharged at this time. Will plan discharge home with outpatient follow-up with Dr. Constantino for continued management of his diabetic toe ulceration. Pt Condition on Discharge: Stable Discharge Disposition: Discharge Home Discharge Time: > 30 minutes Discharge Instructions DIET: Follow Instructions for: Diabetic Diet Activities you can perform: Regular-No Restrictions Activities to Avoid: Driving for 24 hrs Follow up Referrals: PCP Follow-up - 1 Week Podiatry - 2-3 Days with Pb Constantino DPM New Medications: Ciprofloxacin (Cipro) 500 Mg Tab 500 MG PO BID Infection Days 5 Ref 0 TAB Continued Medications: Aspirin (Aspirin) 81 Mg Tab 81 MG PO DAILY Ref 0 Baclofen (Baclofen) 10 Mg Tab 10 MG PO BID Muscle Spasm Ref 0 TAB Clopidogrel (Plavix) 75 Mg Tab 75 MG PO DAILY Blood Clot Prevention #30 Ref 0 TAB Famotidine-Calcium (Duo Fusion) 10-800 Mg Tab 10-800 MG PO BID Glipizide (Glipizide) 5 Mg Tab 10 MG PO BIDAC Take 30 minutes before a meal Blood Sugar Management #60 Ref 0 TAB Hydrocodone-Acetaminophen (Lortab) 10-325 Mg Tab 1 TAB PO Q6H PRN PAIN Ref 0 TAB Lisinopril (Lisinopril) 2.5 Mg Tab 2.5 MG PO DAILY #30 Ref 0 TAB Metformin (Metformin) 1,000 Mg Tab 1000 MG PO BIDPC With meals Blood Sugar Management #60 Ref 0 TAB Metoprolol Tartrate (Metoprolol Tartrate) 50 Mg Tab 50 MG PO BID #60 Ref 0 TAB Nitroglycerin SL (Nitroglycerin SL) 0.6 Mg Subl 0.6 MG SL DIRECTED ONE TABLET UNDER THE TONGUE NEEDED FOR CHEST PAIN, MAY REPEAT EVERY FIVE MINUTES FOR A TOTAL OF 3 DOSES OR CALL 911 IF NO RELIEF PRN CHEST PAIN #100 Ref 0 TAB.SL Simvastatin (Simvastatin) 20 Mg Tab 20 MG PO DAILY Cholesterol Management #30 Ref 0 TAB Additional Information Written by Dean Thompson, acting as scribe for Dr. Gusman on 01/04/17 at 12: 01. This note was transcribed by ena Thompson. I, Dr. Cheri Gusman personally performed the history, physical exam, and medical decision making; and confirmed the accuracy of the information in the transcribed note. Authenticated by Dr. Cheri Gusman on 01/04/17 at 12:01. Dean Thompson Jan 04, 2017 12:04 Cheri Gusman MD Jan 04, 2017 14:05
== END 2017-01-04 16:12 | disposition home or self-care (01) ==
LOC: PHEFT 13:48 → PHEDA 16:06 → PH3A 20:45
PROVIDERS: ADMIT Hospitalist; ATTEND Hospitalist
DX: L03.032 Cellulitis of left toe (principal); S91.142A Puncture wound with foreign body of left great toe without damage to nail, initial encounter; I25.10 Atherosclerotic heart disease of native coronary artery without angina pectoris; I10 Essential (primary) hypertension; E78.5 Hyperlipidemia, unspecified; E78.00 Pure hypercholesterolemia, unspecified; E11.51 Type 2 diabetes mellitus with diabetic peripheral angiopathy without gangrene; I73.9 Peripheral vascular disease, unspecified; E11.621 Type 2 diabetes mellitus with foot ulcer; L97.529 Non-pressure chronic ulcer of other part of left foot with unspecified severity; K21.9 Gastro-esophageal reflux disease without esophagitis; G47.30 Sleep apnea, unspecified; K58.9 Irritable bowel syndrome, unspecified; N40.0 Benign prostatic hyperplasia without lower urinary tract symptoms; Z95.1 Presence of aortocoronary bypass graft; Z95.5 Presence of coronary angioplasty implant and graft; Z79.899 Other long term (current) drug therapy; Z79.84 Long term (current) use of oral hypoglycemic drugs; Z79.82 Long term (current) use of aspirin; Z79.02 Long term (current) use of antithrombotics/antiplatelets; Z87.891 Personal history of nicotine dependence; W45.0XXA Nail entering through skin, initial encounter
CPT/HCPCS: 73660; 78807; 78999; 80048; 80053; 82948; 85025; 90471; 90714; 93922; 96365; 96366; 96372; 99285; A9569; G0378; J0692; J1650; J1815; J1956; J3370; J7050

== ENCOUNTER 2017-02-19 12:21 | Emergency (ER) | payer OTHER ==
[~2017-02-19] VITALS: Ht 182.9 cm; Wt 95.9 kg
[~2017-02-19 12:21] MED LIST changes: -CANA300T PO; +CIPR-9 PO; -FINA5TAB2 PO; -GLUCTAB PO; +HYDR-3535 PO; -LIBRAX PO; -LORTA10 PO; +METF1000 PO; +METO50TA PO; -OMEP20CA2 PO; -TOPR50TA PO
[2017-02-19 12:47] VITALS: BP 144/69; PULSE 69; RESP 20; TEMP 98.3; O2SAT 98
[2017-02-19] MEDS ORDERED: CLINDAMYCIN INJ 900 MG in SODIUM CHLORIDE 0.9% INJ 100 ML IV ONE (13:00)
--- NOTE | 2017-02-19 13:13 | PD ---
HPI Chief Complaint: Skin Problem Time Seen by Provider: 12:54 Travel History International Travel<30 days: No Contact w/Intl Traveler<30days: No Traveled to known affect area: No History of Present Illness HPI 71 yo M c/o right foot erythema and discharge. Erythema x a few days. Discharge today. Pt started bactrim last night after seeing podiatry, Dr Graves. Erythema spread proximally since starting bactrim prompting ER evaluation per podiatry advice. No fever. Onset gradual timing constant. No fever. No additional complaint. PFSH Past Medical History Hx Anticoagulant Therapy: Yes (plavix) Asthma: No Autoimmune Disease: No Anxiety: No Depression: No Cancer: No Cardiovascular Problems: Yes High Cholesterol: Yes Chest Pain: No Congestive Heart Failure: No COPD: No Diabetes: Yes Diminished Hearing: No Endocrine: Yes Gastrointestinal Disorders: No GERD: Yes Glaucoma: No Genitourinary: Yes (ENLARGED PROSTRATE, INCONTANCE) Hepatitis: No Hiatal Hernia: No Hypertension: Yes Immune Disorder: No Kidney Stones: No Musculoskeletal: No Neurologic: No Psychiatric: No Reproductive: No Respiratory: Yes Integumentary: Yes (WOUND ON RIGHT GREAT TOE) Renal Failure: No Sleep Apnea: Yes Thyroid Disease: No Ulcer: No Past Surgical History AICD: No Appendectomy: Yes Arteriovenous Shunt: No Body Medical Devices: BLADDER STIMULATOR Cholecystectomy: Yes Coronary Artery Bypass Graft: Yes (X3 1995) Ear Surgery: No Endocrine Surgery: No Eye Surgery: No Gynecologic Surgery: No Insulin Pump: No Joint Replacement: No Oral Surgery: No Pacemaker: No Thoracic Surgery: Yes (CABG) Other Surgery: Yes (RECTAL TUMOR 07/09) Social History Alcohol Use: Yes (RARE) Tobacco Use: No Substance Use: No Allergies-Medications (Allergen,Severity, Reaction): Coded Allergies: No Known Allergies (Verified , 02/19/17) Reported Meds & Prescriptions Reported Meds & Active Scripts Active Reported Bactrim DS (Sulfamethoxazole-Trimethoprim) 800-160 Mg Tab 1 Tab PO BID Lortab (Hydrocodone-Acetaminophen) 10-325 Mg Tab 1 Tab PO Q6H PRN Metoprolol Tartrate 50 Mg Tab 50 Mg PO BID Metformin (Metformin HCl) 1,000 Mg Tab 1,000 Mg PO BIDPC With meals Plavix (Clopidogrel Bisulfate) 75 Mg Tab 75 Mg PO DAILY Duo Fusion (Famotidine-Calcium) 10-800 Mg Tab 10-800 Mg PO BID Nitroglycerin SL (Nitroglycerin) 0.6 Mg Subl 0.6 Mg SL DIRECTED PRN ONE TABLET UNDER THE TONGUE NEEDED FOR CHEST PAIN, MAY REPEAT EVERY FIVE MINUTES FOR A TOTAL OF 3 DOSES OR CALL 911 IF NO RELIEF Baclofen 10 Mg Tab 10 Mg PO BID Glipizide 5 Mg Tab 10 Mg PO BIDAC Take 30 minutes before a meal Lisinopril 2.5 Mg Tab 2.5 Mg PO DAILY Simvastatin 20 Mg Tab 20 Mg PO DAILY Review of Systems Except as stated in HPI: all other systems reviewed are Neg Physical Exam Narrative GENERAL: 71 yo M, WNWD, NA SKIN: Warm and dry. HEAD: Atraumatic. Normocephalic. EYES: Pupils equal and round. No scleral icterus. No injection or drainage. ENT: No nasal bleeding or discharge. Mucous membranes pink and moist. NECK: Trachea midline. No JVD. CARDIOVASCULAR: Regular rate and rhythm. RESPIRATORY: No accessory muscle use. Clear to auscultation. Breath sounds equal bilaterally. GASTROINTESTINAL: Abdomen soft, non-tender, nondistended. Hepatic and splenic margins not palpable. MUSCULOSKELETAL: R foot with open vesicle along the dorsal and lateral aspects of the fifth metatarsal with foul smelling discahrge. No crepitus. Erythema extends to distal third of right lower leg. 2+ DP bilaterally. NEUROLOGICAL: Awake and alert. No obvious cranial nerve deficits. Motor grossly within normal limits. Five out of 5 muscle strength in the arms and legs. Normal speech. PSYCHIATRIC: Appropriate mood and affect; insight and judgment normal. Data Data Last Documented VS Vital Signs Date Time Temp Pulse Resp B/P (MAP) Pulse Ox O2 Delivery O2 Flow Rate FiO2 02/19/17 12:47 98.3 69 20 144/69 (94) 98 Vs reviewed Orders Orders Basic Metabolic Panel (Bmp) (02/19/17 12:58) Complete Blood Count With Diff (02/19/17 12:58) Wound Culture And Gram Stain (02/19/17 12:58) Iv Access Insert/Monitor (02/19/17 12:58) Wound Care (02/19/17 12:58) Clindamycin Inj (Cleocin Inj) (02/19/17 13:00) Foot, Complete ([id number]) (02/19/17 ) Consult Infectious Disease (02/19/17 ) Case Management Consult (02/19/17 ) Asp:No Reaction To [facility]/Vanc (Asp Crit (02/19/17 14:30) Asp: Does Not Meet Inpt Admit (Asp Crit: (02/19/17 14:30) Asp: Iv Antibiotics Admit Only (Asp Crit (02/19/17 14:30) Asp: Location Of [facility] Admin (Asp Crit: (02/19/17 14:30) Dalbavancin Inj (Dalvance Inj) (02/19/17 14:28) (Hub Use Only)Inp Phy Cons/Ref (02/19/17 ) Labs Laboratory Tests Test 02/19/17 13:33 White Blood Count 12.0 TH/MM3 Red Blood Count 5.47 MIL/MM3 Hemoglobin 15.2 GM/DL Hematocrit 46.5 % Mean Corpuscular Volume 85.0 FL Mean Corpuscular Hemoglobin 27.8 PG Mean Corpuscular Hemoglobin Concent 32.7 % Red Cell Distribution Width 12.7 % Platelet Count 166 TH/MM3 Mean Platelet Volume 8.9 FL Neutrophils (%) (Auto) 75.2 % Lymphocytes (%) (Auto) 16.0 % Monocytes (%) (Auto) 7.7 % Eosinophils (%) (Auto) 0.7 % Basophils (%) (Auto) 0.4 % Neutrophils # (Auto) 9.1 TH/MM3 Lymphocytes # (Auto) 1.9 TH/MM3 Monocytes # (Auto) 0.9 TH/MM3 Eosinophils # (Auto) 0.1 TH/MM3 Basophils # (Auto) 0.0 TH/MM3 CBC Comment DIFF FINAL Differential Comment Blood Urea Nitrogen 26 MG/DL Creatinine 1.10 MG/DL Random Glucose 178 MG/DL Calcium Level 9.0 MG/DL Sodium Level 137 MEQ/L Potassium Level 4.2 MEQ/L Chloride Level 102 MEQ/L Carbon Dioxide Level 24.6 MEQ/L Anion Gap 10 MEQ/L Estimat Glomerular Filtration Rate 66 ML/MIN MDM Medical Decision Making Medical Screen Exam Complete: Yes Emergency Medical Condition: Yes Medical Record Reviewed: Yes Differential Diagnosis necrotizing fasciitis, cellulitis, osteomyelitis Narrative Course CBC & BMP Diagram 02/19/17 13:33 Calcium Level 9.0 Last 24 hours Impressions Foot X-Ray 02/19/17 0000 Signed Impressions: Service Date/Time: January 14:00 - CONCLUSION: Lateral soft tissue swelling. No fracture. Benign cystic change proximal phalanx great toe. Wilson Eduardo MD Case d/w Dr Henderson of infectious disease. Pt ok to receive Dalvance and follow up with Dr Henderson next week. Return precautions discussed. Pt amenable with plan. Pt took photo of extent of cellulitis about the foot and lower leg. Diagnosis Primary Impression: Cellulitis Qualified Codes: L03.115 - Cellulitis of right lower limb Referrals: Patito Henderson MD 1 week Additional Instructions: PLEASE FOLLOW UP WITH DR HENDERSON OF INFECTIOUS DISEASE NEXT WEEK. PLEASE RETURN IF YOU DEVELOP INCREASING PAIN, SWELLING, REDNESS OR A FEVER. Med/Other Pt SpecificInfo: No Change to Meds Disposition: 01 DISCHARGE HOME Condition: Stable Eduardo Hall MD Feb 19, 2017 13:13
[2017-02-19] MEDS ORDERED: BACT800T5 PO (13:16)
[2017-02-19 13:44] LABS: AUTOMATED NEUTROPHIL # 9.1 TH/MM3 (1.8-7.7); BASOPHIL % 0.4 % (0.0-2.0); EOSINOPHIL # 0.1 TH/MM3 (0-0.4); EOSINOPHIL % 0.7 % (0.0-4.0); HEMATOCRIT 46.5 % (39.0-51.0); HEMO FLAGS DIFF FINAL; LYMPHOCYTE # 1.9 TH/MM3 (1.0-4.8); MEAN CORPUSCULAR HEMOGLOBIN 27.8 PG (27.0-34.0); MEAN CORPUSCULAR HGB CONC 32.7 % (32.0-36.0); MONO % 7.7 % (0.0-8.0); NEUT % 75.2 % (16.0-70.0); PLATELET COUNT 166 TH/MM3 (150-450); RED BLOOD COUNT 5.47 MIL/MM3 (4.50-5.90); RED CELL DISTRIBUTION WIDTH 12.7 % (11.6-17.2)
[2017-02-19 13:53] LABS: POTASSIUM 4.2 MEQ/L (3.5-5.1)
[2017-02-19 13:57] LABS: BICARBONATE 24.6 MEQ/L (21.0-32.0)
[2017-02-19] MEDS ORDERED: DALBAVANCIN INJ 1,500 MG in DEXTROSE 5% IN WATE 500 ML INJ 500 ML IV STA ×2 (14:28)
[2017-02-19] MEDS ORDERED: ASP: No known hypersensitivity to Vanco, Telavancin, Dalbavancin OTHER ONE (14:30)
[2017-02-19] MEDS ORDERED: ASP: Only reason for admit - IV antibiotics OTHER ONE (14:30)
[2017-02-19] MEDS ORDERED: ASP: Does not meet inpatient admission criteria OTHER ONE (14:30)
[2017-02-19] MEDS ORDERED: ASP: Location of Dalbavancin administration OTHER ONE (14:30)
--- NOTE | 2017-02-19 14:54 | RADRPT ---
EXAM DATE/TIME: 02/19/2017 14:00 [facility] COMPARISON: No previous studies available for comparison. INDICATIONS : Right foot infection/wound on right plantar surface of foot. MEDICAL HISTORY : Hypercholesterolemia. Inflammatory bowel disease. Hypertension. Sleep apnea. Elarged prostate. Re ctal tumor. Diabetic. GERD. SURGICAL HISTORY : Cholecystectomy. Appendectomy. CABG. Arteries in legs scraped. Right shoulder. Colon surgery. ENCOUNTER: Initial ACUITY: 3 days PAIN SCORE: 7/10 LOCATION: Right plantar foot FINDINGS: Three view examination of the right foot demonstrates lateral soft tissue swelling without dislocatio n, or fracture. The tarsal bones appear intact. The interphalangeal and metatarsophalangeal joints are intact. The calcaneus is intact. Bony mineralization is normal. Prominent cyst along the base of the proximal phalanx great toe. Mild degenerative changes. CONCLUSION: Lateral soft tissue swelling. No fracture. Benign cystic change proximal phalanx great toe. Wilson Eduardo MD on February 19, 2017 at 14:52 Board Certified Radiologist. This report was verified electronically.
[2017-02-19 17:34] VITALS: BP 116/78; PULSE 78; RESP 18; O2SAT 98
== END 2017-02-19 17:36 | disposition home or self-care (01) ==
LOC: PHED 12:21
DX: L03.115 Cellulitis of right lower limb (principal); E11.9 Type 2 diabetes mellitus without complications; E78.00 Pure hypercholesterolemia, unspecified; I10 Essential (primary) hypertension; Z95.1 Presence of aortocoronary bypass graft; K21.9 Gastro-esophageal reflux disease without esophagitis
CPT/HCPCS: 73630; 80048; 85025; 87070; 87077; 87186; 96365; 96366; 99284; J0875; J7060

== ENCOUNTER → 2017-10-01 | Day surgery (SDC) | payer OTHER ==
[~2017-10-01] MED LIST changes: -ASPI81 PO; +BACT800T5 PO; +BUPIVACAINE HCL PF 0.25% 10 ML VIAL ONE; -CIPR-9 PO; +LACTATED RINGER'S 1000 ML INJ 1,000 ML ONE; +MIDAZOLAM HCL 2 MG/2 ML VIAL ONE; +ONDANSETRON HCL 4 MG/2 ML VIAL IV PUSH ONE; +PROPOFOL 200 MG/20 ML AMP IV ONE; +ceFAZolin 2 GM PREMIX 50 ML ONE
--- NOTE | 2017-10-01 14:54 | MP ---
cc: Pb Constantino DPM DATE OF OPERATION: 10/01/2017 DATE OF PROCEDURE: 10/01/2017 PREOPERATIVE DIAGNOSES: 1. Left hallux ulcer, exostosis. 2. Right fifth metatarsal ulcer with exostosis fifth metatarsal. 3. Left hallux contracture. POSTOPERATIVE DIAGNOSES: 1. Left hallux ulcer, exostosis. 2. Right fifth metatarsal ulcer with exostosis fifth metatarsal. PROCEDURE PERFORMED: 1. Left hallux exostectomy. 2. Right fifth metatarsal exostectomy. 3. Sharp selective elliptical debridement deep to fascia ulcer right foot with application of skin graft, Apligraf. 4. Left hallux extensor hallucis longus tendon lengthening. SURGEON: Pb Constantino DPM SCRUB SLABBER LIGHT: Claudette. SPECIMEN: Bone right foot for pathological analysis, left foot ulcer swab for micro. TOURNIQUET TIME: 25 minutes on the right, 37 minutes on the left at a presetting of 215 mmHg bilateral ankles. ANESTHESIA: General with local, approximately 10 mL of 0.25% Marcaine plain. DISPOSITION: Discharge home once stable per same day surgery criteria. JUSTIFICATION OF PROCEDURE: A 72-year-old male with chronic ulcerations. We devised a plan to move forward after failing conservative treatment to heal the wounds. The patient is likely having neuropathic ulcers due to ground reactive forces of multiple bony prominences on the right fifth metatarsal and on the left hallux. There were no guarantees given or implied regarding the outcome. Medical clearance obtained. Circulation verified to be adequate. PROCEDURE IN DETAIL: Under mild sedation, the patient was brought into the operating room, placed on the operating table in the supine position. Following the induction of general anesthesia, local anesthesia was obtained about the patient's left hallux and right fifth ray utilizing standard block technique. The bilateral lower extremities were then scrubbed, prepped and draped in the usual aseptic fashion. The first focus was the right foot. The foot was elevated and exsanguinated and the previously placed mid ankle tourniquet was inflated to 215 mmHg. An incision was made over the lateral aspect of the fifth MPJ. Sharp and blunt dissection was carried down subcapsular. There was noted to be a prominent dorsal lateral eminence as well as plantar prominence. This was transected to a smooth bony contour. There was noted to be a flat surface upon palpating the fifth MPJ. The wound was then flushed with copious amounts of normal saline. Deep capsule was closed utilizing Vicryl. Skin was closed utilizing nylon. Sharp selective elliptical debridement took place of a partial thickness ulcer at the plantar aspect of the fifth MPJ. A culture taken of this area. There were no clinical signs of infection. This did not probe to bone or tendon. Apligraf was then applied in this area. It was sutured into the base of the wound and fenestrated. A wet-to-dry moist bandage was then placed, nonadherent with Adaptic over the right foot. Pneumatic tourniquet was dropped. There was a prompt hyperemic response to all digits without any delayed capillary fill time. Next focus was the left foot. An incision was made first in the plantar aspect of the IPJ. Sharp and blunt dissection was carried down to the extensor hallucis longus tendon, which was identified. Two medial stab incisions and 1 lateral stab incision was made approximately 4 mm from each other and the toe was then dorsiflexed. This lengthened the tendon. It was then sutured in place utilizing 3-0 FiberWire. Deep closure took place utilizing Vicryl. Skin was closed utilizing nylon. Next, a fish mouth type incision was made at the distal aspect of the toe. The dorsal and plantar flap were then made subperiosteal and there was noted to be a plantar distal prominence at the level of the distal phalanx. This was then transected to a smooth bony contour. This was flushed with copious amounts of normal saline. Deep closure took place utilizing Monocryl. The skin was closed utilizing nylon. Upon releasing the left Pneumatic ankle tourniquet, there was a prompt hyperemic response to all digits without any delayed capillary refill time. A bulky bandage was placed. The patient transferred to PACU with all vital signs stable. Before leaving the operating room, he received a right knee well-padded fiberglass splint to prevent any friction or shear forces on the skin graft. The patient will weight bear on the left. Nonweightbearing on the right. I will see the patient within 1 week. NONA Wall/YURI , 02:27 PM , 02:53 PM
== END | disposition home or self-care (01) ==
LOC: ESDC 10:56
PROVIDERS: ATTEND Podiatrist Foot & Ankle Surgery
DX: L97.523 Non-pressure chronic ulcer of other part of left foot with necrosis of muscle (principal); L97.513 Non-pressure chronic ulcer of other part of right foot with necrosis of muscle; M77.9 Enthesopathy, unspecified; M20.5X2 Other deformities of toe(s) (acquired), left foot; B95.2 Enterococcus as the cause of diseases classified elsewhere; B95.62 Methicillin resistant Staphylococcus aureus infection as the cause of diseases classified elsewhere
CPT/HCPCS: 01470; 01480; 11043; 15275; 28110; 28124; 28234; 82948; 86403; 87070; 87077; 87176; 87186; 87205; 88305; 88311; J0690; J2250; J2405; J3010; J7120; Q4101

== ENCOUNTER 2017-10-14 14:51 | Inpatient (IN) | payer OTHER, MEDICARE ==
[~2017-10-14] VITALS: Ht 182.9 cm; Wt 99.6 kg
[~2017-10-14 14:51] MED LIST changes: -BUPIVACAINE HCL PF 0.25% 10 ML VIAL ONE; -LACTATED RINGER'S 1000 ML INJ 1,000 ML ONE; -MIDAZOLAM HCL 2 MG/2 ML VIAL ONE; -ONDANSETRON HCL 4 MG/2 ML VIAL IV PUSH ONE; -PROPOFOL 200 MG/20 ML AMP IV ONE; -ceFAZolin 2 GM PREMIX 50 ML ONE
[2017-10-14 14:53] VITALS: BP 124/78; PULSE 85; RESP 18; TEMP 97; O2SAT 96
[2017-10-14] MEDS ORDERED: PIPERACIL-TAZO 3.375 GM PREMIX 50 ML IV ONE (15:30)
[2017-10-14] MEDS ORDERED: VANCOMYCIN INJ 1,500 MG in SODIUM CHLORID 0.9% 500 ML INJ 500 ML IV ONE (15:45)
[2017-10-14 15:57] LABS: AUTOMATED NEUTROPHIL # 8.8 TH/MM3 (1.8-7.7); BASOPHIL # 0.1 TH/MM3 (0-0.2); BASOPHIL % 0.8 % (0.0-2.0); EOSINOPHIL # 0.1 TH/MM3 (0-0.4); EOSINOPHIL % 1.2 % (0.0-4.0); HEMATOCRIT 50.4 % (39.0-51.0); HEMOGLOBIN 16.7 GM/DL (13.0-17.0); LYMPH % 18.9 % (9.0-44.0); LYMPHOCYTE # 2.3 TH/MM3 (1.0-4.8); MEAN CELL VOLUME 85.9 FL (80.0-100.0); MEAN CORPUSCULAR HEMOGLOBIN 28.5 PG (27.0-34.0); MEAN CORPUSCULAR HGB CONC 33.2 % (32.0-36.0); MEAN PLATELET VOLUME 8.5 FL (7.0-11.0); NEUT % 71.1 % (16.0-70.0); PLATELET COUNT 215 TH/MM3 (150-450); RED BLOOD COUNT 5.87 MIL/MM3 (4.50-5.90); RED CELL DISTRIBUTION WIDTH 14.5 % (11.6-17.2); WHITE BLOOD COUNT 12.4 TH/MM3 (4.0-11.0)
[2017-10-14 16:16] LABS: ALBUMIN 4.1 GM/DL (3.4-5.0); ALT (GPT) 31 U/L (12-78); AST (GOT) 21 U/L (15-37); BICARBONATE 24.6 MEQ/L (21.0-32.0); BLOOD UREA NITROGEN 25 MG/DL (7-18); CALCIUM 9.2 MG/DL (8.5-10.1); CHLORIDE 103 MEQ/L (98-107); CREATININE 1.79 MG/DL (0.60-1.30); GLOMERULAR FILTRATION RATE 38 ML/MIN (>89); GLUCOSE,RANDOM 216 MG/DL (74-106); SODIUM (NA) 139 MEQ/L (136-145)
[2017-10-14 16:19] LABS: ALKALINE PHOSPHATASE 86 U/L (45-117)
[2017-10-14 16:22] LABS: LACTIC ACID SEPSIS PROTOCOL 3.4 mmol/L (0.4-2.0)
[2017-10-14] MEDS ORDERED: SODIUM CHLOR 0.9% 1000 ML INJ 1,000 ML IV SCH ×2 (16:30→18:00)
[2017-10-14] MEDS ORDERED: SODIUM CHLOR 0.9% 1000 ML INJ 1,000 ML IV ONE (16:30)
--- NOTE | 2017-10-14 17:20 | PD ---
HPI Chief Complaint: Skin Problem Time Seen by Provider: 15:05 Travel History International Travel<30 days: No Contact w/Intl Traveler<30days: No Traveled to known affect area: No History of Present Illness HPI This is a 72-year-old male with a history of diabetes who presents to the emergency department having had a right fifth metatarsal exostectomy 2 weeks ago who presents to the emergency department with increasing redness and drainage from the wound, constant, moderate severity with no associated fevers or chills. He went to the noxious weeds and pest inspector office today and they expressed some purulent drainage and advised him to come to the emergency department to be admitted for infection. PFSH Past Medical History Hx Anticoagulant Therapy: Yes Asthma: No Autoimmune Disease: No Anxiety: No Depression: No Cancer: No Cardiovascular Problems: Yes High Cholesterol: Yes Chest Pain: No Congestive Heart Failure: No COPD: No Diabetes: Yes Patient Takes Glucophage: Yes Diminished Hearing: No Endocrine: Yes Gastrointestinal Disorders: No GERD: Yes Glaucoma: No Genitourinary: Yes (ENLARGED PROSTRATE, INCONTANCE) Hepatitis: No Hiatal Hernia: No Hypertension: Yes Immune Disorder: No Implanted Vascular Access Dvce: Yes Kidney Stones: No Musculoskeletal: No Neurologic: No Psychiatric: No Reproductive: No Respiratory: Yes Integumentary: Yes (WOUND ON RIGHT GREAT TOE) Immunizations Current: No Renal Failure: No Sleep Apnea: Yes Thyroid Disease: No Ulcer: No Tetanus Vaccination: < 5 Years Influenza Vaccination: No Past Surgical History AICD: No Appendectomy: Yes Arteriovenous Shunt: No Body Medical Devices: BLADDER STIMULATOR Cholecystectomy: Yes Coronary Artery Bypass Graft: Yes (X3 1995) Ear Surgery: No Endocrine Surgery: No Eye Surgery: No Gynecologic Surgery: No Insulin Pump: No Joint Replacement: No Neurologic Surgery: Yes Oral Surgery: No Pacemaker: No Thoracic Surgery: Yes (CABG) Other Surgery: Yes (RECTAL TUMOR 07/09) Social History Alcohol Use: Yes (RARE) Tobacco Use: No (quit 20 years ago ) Substance Use: No Allergies-Medications (Allergen,Severity, Reaction): Coded Allergies: No Known Allergies (Verified Adverse Reaction, Unknown, 10/14/17) Reported Meds & Prescriptions Reported Meds & Active Scripts Active Reported Bactrim DS (Sulfamethoxazole-Trimethoprim) 800-160 Mg Tab 1 Tab PO BID Metoprolol Tartrate 50 Mg Tab 50 Mg PO BID Metformin (Metformin HCl) 1,000 Mg Tab 1,000 Mg PO BIDPC With meals Plavix (Clopidogrel Bisulfate) 75 Mg Tab 75 Mg PO DAILY Duo Fusion (Famotidine-Calcium) 10-800 Mg Tab 10-800 Mg PO BID Nitroglycerin SL (Nitroglycerin) 0.6 Mg Subl 0.6 Mg SL DIRECTED PRN ONE TABLET UNDER THE TONGUE NEEDED FOR CHEST PAIN, MAY REPEAT EVERY FIVE MINUTES FOR A TOTAL OF 3 DOSES OR CALL 911 IF NO RELIEF Baclofen 10 Mg Tab 10 Mg PO BID Glipizide 5 Mg Tab 10 Mg PO BIDAC Take 30 minutes before a meal Lisinopril 2.5 Mg Tab 2.5 Mg PO DAILY Simvastatin 20 Mg Tab 20 Mg PO DAILY Review of Systems Except as stated in HPI: all other systems reviewed are Neg Physical Exam Narrative GENERAL:Well appearing, no acute distress SKIN: 4 cm wound on the right lateral foot, with some clear drainage and surrounding warmth and erythema. HEAD: Atraumatic. Normocephalic. EYES: Pupils equal and round. No injection or drainage. ENT: Moist mucous membranes NECK: Trachea midline. CARDIOVASCULAR: Regular rate and rhythm. No murmur appreciated. RESPIRATORY: Clear to auscultation. Breath sounds equal bilaterally. GASTROINTESTINAL: Abdomen soft, non-tender, nondistended. MUSCULOSKELETAL: No obvious deformities. NEUROLOGICAL: Awake and alert. No obvious cranial nerve deficits. Moving all extremities. PSYCHIATRIC: Appropriate mood and affect; insight and judgment normal. Data Data Last Documented VS Vital Signs Date Time Temp Pulse Resp B/P (MAP) Pulse Ox O2 Delivery O2 Flow Rate FiO2 10/14/17 14:53 97.0 85 18 124/78 (93) 96 Orders Orders Complete Blood Count With Diff (10/14/17 15:28) Comprehensive Metabolic Panel (10/14/17 15:28) Lactic Acid Sepsis Protocol (10/14/17 15:28) Blood Culture (10/14/17 15:28) Piperacil-Tazo 3.375 Gm Premix (Zosyn 3. (10/14/17 15:30) Westergren Sedimentation Rate (10/14/17 15:37) Vancomycin Inj (Vancomycin Inj) (10/14/17 15:45) Sodium Chlor 0.9% 1000 Ml Inj (Ns 1000 M (10/14/17 16:30) Sodium Chlor 0.9% 1000 Ml Inj (Ns 1000 M (10/14/17 16:30) Admit Order (Ed Use Only) (10/14/17 16:30) Labs Laboratory Tests Test 10/14/17 15:24 10/14/17 15:39 White Blood Count 12.4 TH/MM3 Red Blood Count 5.87 MIL/MM3 Hemoglobin 16.7 GM/DL Hematocrit 50.4 % Mean Corpuscular Volume 85.9 FL Mean Corpuscular Hemoglobin 28.5 PG Mean Corpuscular Hemoglobin Concent 33.2 % Red Cell Distribution Width 14.5 % Platelet Count 215 TH/MM3 Mean Platelet Volume 8.5 FL Neutrophils (%) (Auto) 71.1 % Lymphocytes (%) (Auto) 18.9 % Monocytes (%) (Auto) 8.0 % Eosinophils (%) (Auto) 1.2 % Basophils (%) (Auto) 0.8 % Neutrophils # (Auto) 8.8 TH/MM3 Lymphocytes # (Auto) 2.3 TH/MM3 Monocytes # (Auto) 1.0 TH/MM3 Eosinophils # (Auto) 0.1 TH/MM3 Basophils # (Auto) 0.1 TH/MM3 CBC Comment DIFF FINAL Differential Comment Erythrocyte Sedimentation Rate 2 mm/hr Blood Urea Nitrogen 25 MG/DL Creatinine 1.79 MG/DL Random Glucose 216 MG/DL Total Protein 8.0 GM/DL Albumin 4.1 GM/DL Calcium Level 9.2 MG/DL Alkaline Phosphatase 86 U/L Aspartate Amino Transf (AST/SGOT) 21 U/L Alanine Aminotransferase (ALT/SGPT) 31 U/L Total Bilirubin 1.0 MG/DL Sodium Level 139 MEQ/L Potassium Level 4.7 MEQ/L Chloride Level 103 MEQ/L Carbon Dioxide Level 24.6 MEQ/L Anion Gap 11 MEQ/L Estimat Glomerular Filtration Rate 38 ML/MIN Lactic Acid Level 3.4 mmol/L [facility] Medical Decision Making Medical Screen Exam Complete: Yes Emergency Medical Condition: Yes Interpretation(s) mild leukocytosis sed rate 2 lactic acid 3.4 Differential Diagnosis cellulitis, abscess, osteomyelitis Narrative Course This is a 72-year-old male who had surgery [address] Constantino who presents to the emergency department with increasing redness and discharge from his right foot wound. He is nontoxic appearing. He was placed on a monitor and an IV was established. Labs were obtained which demonstrate a mild leukocytosis and a lactic acid of 3.4. He was given 2 L of IV fluid and started on vancomycin and Zosyn per Dr. Constantino. My initial conversation with Dr. Constantino was to obtain a CT with IV contrast as the patient cannot get an MRI because of a bladder stimulator. Unfortunately the patient has a GFR of [address] with IV contrast was deferred. Patient will be admitted for continued management by Dr. Constantino and the hospitalist service. Physician Communication Physician Communication Discussed with Dr. Callaway Diagnosis Primary Impression: Wound infection Admitting Information Admitting Physician Requests: Admit Nelida Gutiérrez MD October 14, 2017 17:20
[2017-10-14] MEDS ORDERED: METOCLOPRAMIDE HCL 10 MG/2 ML VIAL IV PUSH PRN (17:45)
[2017-10-14] MEDS ORDERED: LACTULOSE SYRUP 20 GM/30 ML CUP PO PRN (17:45)
[2017-10-14] MEDS ORDERED: DEXTROSE 50% IN WATER 50 ML VIAL(D50) IV PUSH PRN (17:45)
[2017-10-14] MEDS ORDERED: GLUCAGON 1 MG/ML VIAL OTHER PRN (17:45)
[2017-10-14] MEDS ORDERED: NALOXONE HCL 0.4 MG/ML AMP IV PUSH PRN (17:45)
[2017-10-14] MEDS ORDERED: MORPHINE SULFATE 4 MG/ML INJ IV PUSH PRN (17:45)
[2017-10-14] MEDS ORDERED: Vancomycin Consult Pharmacy 1 EA OTHER SCH (17:45)
[2017-10-14] MEDS ORDERED: ACETAMINOPHEN 325 MG TAB PO PRN (17:45)
[2017-10-14] MEDS ORDERED: SODIUM CHLORIDE 0.9% FLUSH 10 ML FLUSH IV FLUSH PRN (17:45)
[2017-10-14] MEDS ORDERED: BISACODYL 10 MG SUPP RECTAL PRN (17:45)
[2017-10-14] MEDS ORDERED: SENNOSIDES 8.6 MG TAB PO PRN (17:45)
[2017-10-14] MEDS ORDERED: MAGNESIUM HYDROXIDE SUSP 30 ML CUP PO PRN (17:45)
--- NOTE | 2017-10-14 17:51 | HHI.HP ---
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 Patient is status post left hallux exostectomy, right fifth metatarsal exostectomy, debridement of right foot ulcer with skin graft on by Dr. Constantino. The patient states he thought he was doing well postoperatively until he went for his two-week checkup today at Dr. Constantino's office when he was noted to have increasing erythema, edema, purulent drainage, and foul odor from his right fifth metatarsal surgical site. Patient does admit that recently he was working on his boat with increased physical activity , but otherwise denies any recent injury to his feet. He denies any recent fevers or chills. He reports compliance with his antibiotics; has been taking oral Bactrim bid since prior to the surgery. He denies any other medical complaints including no lightheadedness, dizziness, chest pain, palpitations, shortness of breath, or abdominal complaints. He reports a history of CABG in 1995, and repeat cardiac catheterization with 1 stent placed in May [address] Alvarado. He reports his last hemoglobin A1c was around 7 and his sugars are fairly well-controlled on his Jardiance and metformin. He also sees an irs agent. Review of Systems Except as stated in HPI: all other systems reviewed are Neg Past Family Social History Past Medical History diabetes hypertension hyperlipidemia CAD BPH PVD bladder stimulator in place [place] Past Surgical History Bladder surgery with stimulator placement CABG in 1995 Cardiac catheterization with stent x1 in Right shoulder arthroscopic surgery Liver biopsy 1982 resulting in emergent laparotomy with cholecystectomy and appendectomy 10/01/17 - Left hallux exostectomy. Right fifth metatarsal exostectomy, Sharp selective elliptical debridement deep to fascia ulcer right foot with application of skin graft, Apligraf; Left hallux extensor hallucis longus tendon lengthening. Reported Medications Bactrim DS (Sulfamethoxazole-Trimethoprim) 800-160 Mg Tab 1 Tab PO BID Metoprolol Tartrate 50 Mg Tab 50 Mg PO BID Metformin (Metformin HCl) 1,000 Mg Tab 1,000 Mg PO BIDPC With meals Plavix (Clopidogrel Bisulfate) 75 Mg Tab 75 Mg PO DAILY Duo Fusion (Famotidine-Calcium) 10-800 Mg Tab 10-800 Mg PO BID Nitroglycerin SL (Nitroglycerin) 0.6 Mg Subl 0.6 Mg SL DIRECTED PRN ONE TABLET UNDER THE TONGUE NEEDED FOR CHEST PAIN, MAY REPEAT EVERY FIVE MINUTES FOR A TOTAL OF 3 DOSES OR CALL 911 IF NO RELIEF Baclofen 10 Mg Tab 10 Mg PO BID Glipizide 5 Mg Tab 10 Mg PO BIDAC Take 30 minutes before a meal Lisinopril 2.5 Mg Tab 2.5 Mg PO DAILY Simvastatin 20 Mg Tab 20 Mg PO DAILY Allergies: Coded Allergies: No Known Allergies (Verified Adverse Reaction, Unknown, 10/14/17) Active Ordered Medications Current Medications Medications (Trade) Dose Ordered Sig/Beverley Route Start Time Stop Time Status Last Admin Vancomycin HCl 1500 mg/Sodium Chloride 515 ml @ 250 mls/hr ONCE ONCE IV 10/14/17 15:45 10/14/17 17:48 10/14/17 16:45 Sodium Chloride 1,000 ml @ 999 mls/hr Q1H1M IV 10/14/17 16:30 10/14/17 17:30 10/14/17 16:46 Sodium Chloride 1,000 ml @ 999 mls/hr BOLUS ONCE IV 10/14/17 16:30 10/14/17 17:30 Family History Mother with Alzheimer's Father with heart disease at a late age Social History Prior tobacco use 1PPD x15 years, quit 15+ years ago Occasional social alcohol use Denies any illicit drug use Physical Exam Vital Signs Vital Signs Date Time Temp Pulse Resp B/P (MAP) Pulse Ox O2 Delivery O2 Flow Rate FiO2 10/14/17 14:53 97.0 85 18 124/78 (93) 96 Physical Exam GENERAL: Well-nourished, well-developed pleasant elderly male patient in NAD. SKIN: Warm and dry. No rash. HEAD: Normocephalic. Atraumatic. EYES: Pupils equal and round. No scleral icterus. No injection or drainage. ENT: No nasal bleeding or discharge. Mucous membranes pink and moist. NECK: Supple. Trachea midline. CARDIOVASCULAR: Regular rate and rhythm. No murmur appreciated. RESPIRATORY: No accessory muscle use. Clear to auscultation. Breath sounds equal bilaterally. GASTROINTESTINAL: Abdomen soft, non-tender, nondistended. Normoactive bowel sounds x4. MUSCULOSKELETAL: Bilateral feet with surgical dressing placed by fire lookout, did not remove for evaluation as these were just evaluated and dressed by fire lookout. No surrounding warmth or edema outside surgical dressings proximal to the ankle. NEUROLOGICAL: Awake and alert. No obvious cranial nerve deficits. Motor grossly within normal limits. Normal speech. PSYCHIATRIC: Appropriate mood and affect; insight and judgment normal. Laboratory Laboratory Tests Test 10/14/17 15:24 10/14/17 15:39 White Blood Count 12.4 Red Blood Count 5.87 Hemoglobin 16.7 Hematocrit 50.4 Mean Corpuscular Volume 85.9 Mean Corpuscular Hemoglobin 28.5 Mean Corpuscular Hemoglobin Concent 33.2 Red Cell Distribution Width 14.5 Platelet Count 215 Mean Platelet Volume 8.5 Neutrophils (%) (Auto) 71.1 Lymphocytes (%) (Auto) 18.9 Monocytes (%) (Auto) 8.0 Eosinophils (%) (Auto) 1.2 Basophils (%) (Auto) 0.8 Neutrophils # (Auto) 8.8 Lymphocytes # (Auto) 2.3 Monocytes # (Auto) 1.0 Eosinophils # (Auto) 0.1 Basophils # (Auto) 0.1 CBC Comment DIFF FINAL Differential Comment Erythrocyte Sedimentation Rate 2 Blood Urea Nitrogen 25 Creatinine 1.79 Random Glucose 216 Total Protein 8.0 Albumin 4.1 Calcium Level 9.2 Alkaline Phosphatase 86 Aspartate Amino Transf (AST/SGOT) 21 Alanine Aminotransferase (ALT/SGPT) 31 Total Bilirubin 1.0 Sodium Level 139 Potassium Level 4.7 Chloride Level 103 Carbon Dioxide Level 24.6 Anion Gap 11 Estimat Glomerular Filtration Rate 38 Lactic Acid Level 3.4 Date/Time Source Procedure Growth Status 10/14/17 15:35 Blood Peripheral Aerobic Blood Culture Pending Received 10/14/17 15:35 Blood Peripheral Anaerobic Blood Culture Pending Received Result Diagram: 10/14/17 1524 10/14/17 1524 Caprini VTE Risk Assessment Caprini VTE Risk Assessment: Mod/High Risk (score >= 2) VTE [facility] Contraindication: LE injury/wound Caprini Risk Assessment Model Point Value = 1 Point Value = 2 Point Value = 3 Point Value = 5 Age 41-60 Minor surgery BMI > 25 kg/m2 Swollen legs Varicose veins or History of unexplained or recurrent spontaneous Oral contraceptives or hormone replacement Sepsis (< 1 month) Serious lung disease, including pneumonia (< 1 month) Abnormal pulmonary function Acute myocardial infarction Congestive heart failure (< 1 month) History of inflammatory bowel disease Medical patient at bed rest Age 61-74 Arthroscopic surgery Major open surgery (> 45 min) Laparoscopic surgery (> 45 min) Malignancy Confined to bed (> 72 hours) Immobilizing plaster cast Central venous access Age >= 75 History of VTE Family history of VTE Factor V Leiden Prothrombin [id number] Lupus anticoagulant Anticardiolipin antibodies Elevated serum homocysteine Heparin-induced thrombocytopenia Other congenital or acquired thrombophilia Stroke (< 1 month) Elective arthroplasty Hip, pelvis, or leg fracture Acute spinal cord injury (< 1 month) Prophylaxis Regimen Total Risk Factor Score Risk Level Prophylaxis Regimen 0-1 Low Early ambulation 2 Moderate Order ONE of the following: *Sequential Compression Device (SCD) *Heparin 5000 units SQ BID 3-4 Higher Order ONE of the following medications: *Heparin 5000 units SQ TID *Enoxaparin/Lovenox 40 mg SQ daily (WT < 150 kg, CrCl > 30 mL/min) *Enoxaparin/Lovenox 30 mg SQ daily (WT < 150 kg, CrCl > 10-29 mL/min) *Enoxaparin/Lovenox 30 mg SQ BID (WT < 150 kg, CrCl > 30 mL/min) AND/OR *Sequential Compression Device (SCD) 5 or more Highest Order ONE of the following medications: *Heparin 5000 units SQ TID (Preferred with Epidurals) *Enoxaparin/Lovenox 40 mg SQ daily (WT < 150 kg, CrCl > 30 mL/min) *Enoxaparin/Lovenox 30 mg SQ daily (WT < 150 kg, CrCl > 10-29 mL/min) *Enoxaparin/Lovenox 30 mg SQ BID (WT < 150 kg, CrCl > 30 mL/min) AND *Sequential Compression Device (SCD) Assessment and Plan Assessment and Plan 72-year-old male with history of diabetes, hypertension, hyperlipidemia, CAD status post CABG and stent 1, BPH, bladder stimulator in place, presents 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 Patient is status post left hallux exostectomy, right fifth metatarsal exostectomy, debridement of right foot ulcer with skin graft on by Dr. Constantino. Right 5th Metatarsal Wound Infection, Failed Outpatient: concern for Osteomyelitis. Sent by Dr. Constantino's office. Would with +erythema/edema/foul odor/purulent drainage. Has been on Bactrim po for the past 2 weeks. WBC 12.4K, lactic acid 3.4, afebrile, ESR wnl. -Unable to have MRI secondary to bladder stimulator; also unable to have CT with contrast due to ALONA -Blood cultures collected -Continue antibiotics with IV Zosyn and IV Vanco, pharmacy consulted for renal dosing -Consulted Podiatry, discussed with Dr. Constantino, will likely plan for biopsy with I&D tomorrow 10/15 -NPO after midnight -Consider ID consult based on cultures/biopsy Diabetes Mellitus: patient reports decent blood sugar control with recent A1c around 7. Follows with endocrinology as outpatient. -holding patient's Jardiance and metformin for now due to ALONA and upcoming procedure -monitor Accu-Checks and cover with SSI. -diabetic diet ALONA on CKD stage II: Cr 1.79, previously 1.10 in . Suspect prerenal secondary to dehydration. -avoid nephrotoxins -give IVF with NS at 100cc/hr x1L -repeat BMP in am HTN/HLD/CAD: chronic, stable. BP well controlled. Banquet Attendant is Dr. Alvarado. -continue patient's home meds including statin, metoprolol -holding patient's plavix with upcoming procedure; hold lisinopril with ALONA -monitor BP, adjust antihypertensives as needed All other medical conditions stable, continue home meds as appropriate. DVT Prophylaxis: avoid chemoprophylaxis with upcoming procedure; mechanical contraindication with bilateral foot wounds Discussed Condition With Patient, Dr. Constantino Physician Certification 2 Midnight Certification Type: Admission for Inpatient Services Order for Inpatient Services The services are ordered in accordance with Medicare regulations or non- Medicare payer requirements, as applicable. In the case of services not specified as inpatient-only, they are appropriately provided as inpatient services in accordance with the 2-midnight benchmark. Estimated LOS (days): 3 days is the estimated time the patient will need to remain in the hospital, assuming treatment plan goals are met and no additional complications. Post-Hospital Plan: Not yet determined Mickie Littlejohn PA-C October 14, 2017 17:51
[2017-10-14 18:52] VITALS: BP 120/70
[2017-10-14 20:30] VITALS: BP 136/74; PULSE 70; RESP 18; TEMP 97.6; O2SAT 95
[2017-10-14] MEDS: DOCUSATE SODIUM 50 MG/SENNA 8.6 MG TAB PO SCH (21:00)
[2017-10-14] MEDS: INSULIN ASPART SUPPLEMENTAL SCALE SQ SCH (21:00)
[2017-10-14] MEDS: SODIUM CHLORIDE 0.9% FLUSH 10 ML FLUSH IV FLUSH SCH (21:00)
[2017-10-14] MEDS: METOPROLOL TARTRATE 50 MG TAB PO SCH (22:28)
[2017-10-14] MEDS: BACLOFEN 10 MG TAB PO SCH (22:29)
[2017-10-14] MEDS: ACETAMINOPHEN/HYDROcodone 325 MG/5 MG TAB PO PRN (22:31)
[2017-10-14] MEDS: PIPERACIL-TAZO 4.5 GM PREMIX 100 ML IV SCH (23:50)
[2017-10-15] VITALS: BP 130/72; PULSE 72; RESP 18; TEMP 97.7; O2SAT 94
[2017-10-15 04:00] VITALS: BP 133/74; PULSE 70; RESP 18; TEMP 97.9; O2SAT 95
[2017-10-15] MEDS: PIPERACIL-TAZO 4.5 GM PREMIX 100 ML IV SCH ×4 (04:11→17:45)
[2017-10-15] MEDS: ACETAMINOPHEN/HYDROcodone 325 MG/5 MG TAB PO PRN ×4 (04:20→20:28)
[2017-10-15 08:00] VITALS: BP 132/64; PULSE 42; RESP 17; TEMP 97.4; O2SAT 97
[2017-10-15] MEDS: INSULIN ASPART SUPPLEMENTAL SCALE SQ SCH ×3 (08:00→20:29)
[2017-10-15 08:35] LABS: AUTOMATED NEUTROPHIL # 4.9 TH/MM3 (1.8-7.7); BASOPHIL # 0.1 TH/MM3 (0-0.2); EOSINOPHIL # 0.2 TH/MM3 (0-0.4); EOSINOPHIL % 2.6 % (0.0-4.0); HEMATOCRIT 45.6 % (39.0-51.0); HEMOGLOBIN 15.4 GM/DL (13.0-17.0); LYMPHOCYTE # 2.3 TH/MM3 (1.0-4.8); MEAN CELL VOLUME 85.7 FL (80.0-100.0); MEAN CORPUSCULAR HEMOGLOBIN 28.9 PG (27.0-34.0); MEAN CORPUSCULAR HGB CONC 33.7 % (32.0-36.0); MEAN PLATELET VOLUME 8.3 FL (7.0-11.0); MONO % 11.5 % (0.0-8.0); NEUT % 57.9 % (16.0-70.0); PLATELET COUNT 154 TH/MM3 (150-450); RED BLOOD COUNT 5.33 MIL/MM3 (4.50-5.90); RED CELL DISTRIBUTION WIDTH 14.8 % (11.6-17.2); WHITE BLOOD COUNT 8.4 TH/MM3 (4.0-11.0)
[2017-10-15 08:59] LABS: BICARBONATE 23.3 MEQ/L (21.0-32.0); CALCIUM 8.7 MG/DL (8.5-10.1); CREATININE 1.32 MG/DL (0.60-1.30)
[2017-10-15] MEDS: SODIUM CHLORIDE 0.9% FLUSH 10 ML FLUSH IV FLUSH SCH ×2 (08:59→20:22)
[2017-10-15] MEDS: DOCUSATE SODIUM 50 MG/SENNA 8.6 MG TAB PO SCH ×2 (09:00→20:29)
[2017-10-15] MEDS: METOPROLOL TARTRATE 50 MG TAB PO SCH ×2 (09:00→20:20)
[2017-10-15 09:02] LABS: RANDOM VANCOMYCIN 6.8 COMMENT
[2017-10-15] MEDS: BACLOFEN 10 MG TAB PO SCH ×2 (09:30→20:21)
[2017-10-15] MEDS: PRAVASTATIN SOD 40 MG TAB PO SCH (09:30)
--- NOTE | 2017-10-15 11:11 | RADRPT ---
EXAM DATE/TIME: 10/15/2017 10:08 [facility] COMPARISON: FOOT RIGHT COMPLETE ([id number]), February 19, 2017, 14:00. INDICATIONS : Fifth metatarsal head ulcer. Post exostectomy 2 weeks ago. Redness & drainage from surgical site. MEDICAL HISTORY : Cardiovascular disease. Hypertension. Diabetes mellitus type 2. SURGICAL HISTORY : CABG Cholecystectomy. Appendectomy. ENCOUNTER: Initial ACUITY: 2 weeks PAIN SCORE: 8/10 LOCATION: Right lateral foot FINDINGS: There is some soft tissue swelling adjacent to the fifth metatarsal-phalangeal joint. There is a nond isplaced fracture involving the distal fifth metatarsal which may be postsurgical. Otherwise, the res t of bony structures are intact and stable compared to the prior study.. No joint dislocation. CONCLUSION: There is a soft tissue swelling adjacent to the fifth metatarsophalangeal joint with a faint nondispl aced racture which may all be postsurgical. Tyrel Corral MD on October 15, 2017 at 11:04 Board Certified Radiologist. This report was verified electronically.
--- NOTE | 2017-10-15 11:17 | HHI.PR ---
Subjective Remarks Follow up foot wound, diabetes. Patient states that his pain is well controlled. Denies cough, dyspnea, chest pain. Objective Vitals Vital Signs Date Time Temp Pulse Resp B/P (MAP) Pulse Ox O2 Delivery O2 Flow Rate FiO2 10/15/17 10:17 97.5 60 16 136/63 (87) 97 10/15/17 08:00 97.4 42 17 132/64 (86) 97 10/15/17 04:00 97.9 70 18 133/74 (93) 95 10/15/17 00:00 97.7 72 18 130/72 (91) 94 10/14/17 20:30 97.6 70 18 136/74 (94) 95 10/14/17 18:52 120/70 (87) 100 10/14/17 14:53 97.0 85 18 124/78 (93) 96 I/O 10/14/17 10/14/17 10/14/17 10/15/17 10/15/17 10/15/17 07:00 15:00 23:00 07:00 15:00 23:00 Intake Total 200 ml Output Total 1500 ml Balance -1300 ml Intake Oral 0 ml IV Total 200 ml Output Urine Total 1500 ml # Bowel Movements 0 Result Diagram: 10/15/1771310/15/17713 Objective Remarks General: No acute distress. Heart: Regular rate and rhythm. No murmur. Lungs: Clear to auscultation bilaterally. No wheezes, rales, or rhonchi. Breathing is nonlabored. Abdomen: Soft, nontender, nondistended. Extremities: No lower extremity edema. Psych: Alert and oriented. Neuro: Normal speech. No focal deficits noted. Procedures None Urinary Catheter: No Vascular Central Line Catheter: No A/P Assessment and Plan 1. Right fifth metatarsal wound infection, failed outpatient therapy: Concern for osteomyelitis. Podiatry to evaluate again today. Continue IV antibiotics. Unable to do MRI secondary to implanted bladder stimulator. Unable to do CT with contrast secondary to acute kidney injury. Blood cultures are pending. Patient is n.p.o. for possible procedure. 2. Diabetes mellitus: Monitor Accu-Cheks and cover with sliding scale insulin. Metformin and Jardiance are on hold as patient is n.p.o. 3. Acute kidney injury superimposed on chronic kidney disease stage II: Creatinine improving with IV fluids. Avoid nephrotoxins. 4. Hypertension: Continue metoprolol. Lisinopril on hold secondary to acute kidney injury. 5. Hyperlipidemia: Continue statin. 6. Coronary artery disease: Currently asymptomatic. Plavix on hold for likely surgical procedure. 7. DVT prophylaxis: Chemical prophylaxis on hold pending surgical procedure. Mechanical prophylaxis contraindicated secondary to bilateral foot wounds. Dean Peng MD October 15, 2017 11:17
[2017-10-15 12:00] VITALS: BP 141/70; PULSE 72; RESP 18; TEMP 97.6; O2SAT 96
[2017-10-15] MEDS ORDERED: LIDOCAINE HCL 1% PF 5 ML SYRINGE OTHER ONE (12:00)
[2017-10-15] MEDS ORDERED: DEXAMETHASONE SOD PHOS 4 MG/ML VIAL IV ONE (12:00)
[2017-10-15] MEDS ORDERED: PHENYLEPH/NS 1000 MCG/10 ML SYR IV ONE (12:00)
[2017-10-15] MEDS ORDERED: PROPOFOL 200 MG/20 ML AMP IV ONE (12:00)
[2017-10-15] MEDS ORDERED: ONDANSETRON HCL 4 MG/2 ML VIAL IV ONE (12:00)
[2017-10-15] MEDS ORDERED: ePHEDrine/NS 25 MG/5 ML SYRINGE IV ONE (12:00)
[2017-10-15] MEDS: VANCOMYCIN INJ 1,750 MG in SODIUM CHLORID 0.9% 500 ML INJ 500 ML IV SCH (13:19)
[2017-10-15 16:00] VITALS: BP 154/89; PULSE 74; RESP 19; TEMP 97.6; O2SAT 97
[2017-10-15] MEDS ORDERED: LACTATED RINGER'S 1000 ML IV PRN (16:15)
[2017-10-15] MEDS ORDERED: METOPROLOL TARTRATE 25 MG TAB PO PRN (16:15)
[2017-10-15] MEDS ORDERED: SODIUM CHLORID 0.9% 500 ML IV PRN (16:15)
[2017-10-15] MEDS ORDERED: CHLORHEXIDINE GLUCONATE 2 % 1 PACK (2 CLOTHS) TOPICAL PRN (16:15)
[2017-10-15] MEDS ORDERED: POVIDONE IODINE 5% (ANTISEPSIS KIT) 4 APPLICATIONS EACH NARE PRN (16:15)
[2017-10-15] MEDS ORDERED: ACETAMINOPHEN 1000 MG/100 ML 100 ML IV ONE (16:41)
[2017-10-15] MEDS ORDERED: FAMOTIDINE 20 MG/2 ML VIAL ONE (16:42)
[2017-10-15] MEDS ORDERED: BUPIVACAINE HCL PF 0.25% 30 ML VIAL ONE (17:00)
[2017-10-15] MEDS ORDERED: GENTAMICIN SULFATE 80 MG/2 ML VIAL ONE (17:00)
--- NOTE | 2017-10-15 18:44 | HHI.PR ---
Immediate Post Op Note Procedure Date: October 15, 2017 Pre Op Diagnosis: Right foot ulcer infection, 5th metatarsal fracture, abscess Post Op Diagnosis: same Surgeon: Pb Cardona [employer] Administrator(s): scrub Procedure: Right foot incision drainage debridement, partial resection of the 5th metatarsal Findings: abscess involving distal 5th metatarsal head fracture Complications: none Specimen(s) removed: bone for path, bone ( margin ) for path, bone cx at margin Anesthesia: General Drains: None Tourniquet time (min at mmHg) 25 min 250 mmhg Patient to: PACU Patient Condition: Good Implant/Devices: SEE IMPLANT LOG (if applicable) Date/Time of Procedure: SEE SURGICAL CARE RECORD Pb Cardona DPM October 15, 2017 18:43
--- NOTE | 2017-10-15 19:14 | MP ---
cc: Pb Constantino DPM DATE OF OPERATION: 10/15/2017 PREOPERATIVE DIAGNOSIS: Right foot ulcer infection, fifth metatarsal fracture with abscess. POSTOPERATIVE DIAGNOSIS: Same- right foot ulcer infection, fifth metatarsal fracture with abscess. PROCEDURE PERFORMED: Right foot incision, drainage, debridement with partial resection of fifth metatarsal. FINDINGS: Abscess involving distal fifth metatarsal head with fracture, dehisced postsurgical wound. COMPLICATIONS: None. SPECIMEN: Bone fifth metatarsal for routine path, also bone from margin proximal fifth metatarsal also sent for path and bone culture for culture and sensitivity of margin. ANESTHESIA: General. DRAINS: None. TOURNIQUET: 25 minutes at this setting at 250 mmHg about the patient's right mid calf. PLAN OF ACTIVITY: PACU, then return to floor. Continue to monitor wound. Await pathology and continue nonweightbearing. JUSTIFICATION FOR PROCEDURE: This 72-year-old male had surgery within the last 2 weeks. He followed for a postoperative appointment within the last 1-2 days, significant deterioration of the foot. There was talk of noncompliance. The patient admitted to cleaning his boat in his postop period. The patient has improved since being on IV antibiotics. X-rays show a fifth metatarsal fracture. The patient was educated on the likelihood of fifth metatarsal resection to remove infection and also a deep culture with likelihood of needing long-term IV antibiotics. No guarantees were given or implied regarding the outcome. The patient understood he may need more surgery at a later date. PROCEDURE IN DETAIL: Under mild sedation, the patient was brought into the operating room, placed on the operating table in supine position. Following the induction of general anesthesia, the right lower extremity was then scrubbed, prepped and draped in the usual aseptic fashion. The foot was elevated and exsanguinated and the previously placed mid calf tourniquet inflated at 250 mmHg. The foot was examined. There was noted to be a necrotic mixed fibrotic ulcer of the distal lateral aspect of the fifth metatarsal head. Previous sutures from surgery approximately 2 weeks ago were removed. Sharp and blunt dissection were carried down immediately down to the periosteum and there is noted to be a fracture fragment. Subperiosteal dissection took place proximally. There was noted to be hard cortical bone at the midshaft of the fifth metatarsal. There was noted to be an abscess that appeared to communicate with the fifth metatarsal head, but it did not go proximally or to the vault of the foot. Utilizing power instrumentation, the fifth metatarsal was resected to clinically hard bony contour. A small rongeur nipper was used to contour the bone margin plantarly and this specimen was sent marked as margin to check for proximal osteomyelitis. A deep culture was taken also at the bone margin. The internal tissue, the joint capsule and the extensor tendon were all noted to be intact. All nonviable tissue was debrided. The wound was flushed with copious amounts of normal saline. It was then partially coapted utilizing Prolene. Upon relieving of the tourniquet, there was a prompt hyperemic response to all digits with any delayed capillary fill time. A bulky bandage placed as well as a Calderon compressive dressing and a posterior splint. The patient was transferred from OR to PACU with all vital signs stable. We will await bone culture, bone pathology. The likelihood of needing long-term IV antibiotics is quite high with this patient. He will also need to be nonweightbearing. The patient has already failed outpatient surgery. There is some talk with the about possibly going to a detention facility to prevent any further complication for a couple weeks. I will advise further pending a bandage change within the next 1-2 days. NONA Wall , 06:43 PM , 07:13 PM CAL
[2017-10-15] MEDS ORDERED: DO NOT ADM ANY ANTICOAGULANT DRUGS PRN (19:15)
--- NOTE | 2017-10-15 19:21 | MB ---
cc: Pb Constantino DPM DATE: 10/15/2017 REASON FOR CONSULTATION: Right foot ulcer, cellulitis within postop period. HISTORY OF PRESENT ILLNESS: This is a patient well known to me who is status post exostectomy and debridement, with ulcer graft application of his right foot, as well as the left hallux talked exostectomy, with extensor digitorum longus tendon lengthening. The patient has had a relatively uneventful recovery until 24 hours ago. He showed up in my office and he had significant drainage, odor. Upon questioning the patient, there was a possibility of him cleaning his boat in his postoperative period and noncompliance. Immediately noticing how bad the infection was, I recommended admission to the hospital for IV antibiotics and further debridement. PAST MEDICAL HISTORY: Positive for diabetes, hypertension, hyperlipidemia, CAD, BPH, PVD, bladder stimulator, ADRIENNE. PAST SURGICAL HISTORY: Bladder surgery, CABG, cardiac catheterization, right shoulder arthroscopic surgery, liver biopsy in 1979, with emergent laparotomy and cholecystectomy with appendectomy, previously stated bilateral foot surgery 10/01/2017. OUTPATIENT MEDICATIONS: 1. Bactrim. 2. Metoprolol. 3. Metformin. 4. Plavix. 5. Duo Fusion. 6. Nitroglycerin 7. Baclofen. 8. Glipizide. 9. Lisinopril. 10. Simvastatin. ALLERGIES: NONE LISTED. MEDICATIONS: Inpatient medications also reviewed. He has been receiving vancomycin and Zosyn. PHYSICAL EXAMINATION: VITAL SIGNS: Temperature 96.7, pulse rate 74, respiratory rate 19, blood pressure 154/89, he is saturating 97% on room air. GENERAL: This is an alert and oriented male seen at bedside, exhibiting nonlabored respirations. He is verbal, appropriate. EXTREMITIES: Right lower extremity was examined. There is noted to be a foul odor, fibrotic wound to the distal lateral aspect of the fifth metatarsal, in the area where previous incision was placed. There is redness extending to the dorsum of the foot. There was probing to bone. Left lower extremity is examined. There is intact incision to the plantar hallux IPJ and the distal aspect of the hallux. No signs of infection, appears to be uncomplicated, appears to be healing. Bilateral lower extremities, there are palpable pulses. Decreased sensation to bilateral feet. LABORATORY FINDINGS: White blood cell 8.4, but the trend 12.4 from previous is trending down, hemoglobin and hematocrit 15 and 45, platelet count is 154. ESR is 2. Chem-7: Sodium was 138, potassium 4.3, chloride 103, CO2 23.3, BUN is 21, creatinine 1.32, random glucose was 135. Lactic acid 2.6. IMAGING FINDINGS: X-rays show linear fracture with bony erosive process of surgical site. No joint dislocation of fifth metatarsal. MICROBIAL FINDINGS: Blood culture no growth 1 day. ASSESSMENT AND PLAN: Right foot osteomyelitis, acute cellulitis, noncompliance in postoperative period. Right foot, left hallux, status post flexor hallucis longus tendon lengthening and exostectomy. Healing within normal limits. The plan is for operative incision, drainage, debridement and resection of fifth metatarsal head given the extent of the infection and radiographic findings. The patient understood. No guarantees were given, or implied regarding the outcome. I will likely be requesting a minimum of 1 month of IV antibiotics pending pathology, he may need longer for osteomyelitis. We will continue to monitor his kidneys. I thank the medicine team for admitting my patient in the postop period and helping me deal with this complication. NONA Wall , 06:31 PM , 07:20 PM
[2017-10-15 20:00] VITALS: BP 122/65; PULSE 80; RESP 20; TEMP 97.4; O2SAT 98
[2017-10-15] MEDS ORDERED: ARTIFICIAL TEARS OPTH SOLN 15 ML BTL RIGHT EYE PRN (21:30)
[2017-10-15] MEDS ORDERED: ZOLPIDEM TARTRATE 5 MG TAB PO ONE (23:15)
[2017-10-16] VITALS: BP 154/74; PULSE 70; RESP 20; TEMP 98; O2SAT 96
[2017-10-16 04:00] VITALS: BP 140/76; PULSE 80; RESP 20; TEMP 99.2; O2SAT 96
[2017-10-16] MEDS: PIPERACIL-TAZO 4.5 GM PREMIX 100 ML IV SCH ×4 (04:23→22:20)
[2017-10-16] MEDS: VANCOMYCIN INJ 1,750 MG in SODIUM CHLORID 0.9% 500 ML INJ 500 ML IV SCH (04:23)
[2017-10-16] MEDS: ACETAMINOPHEN/HYDROcodone 325 MG/5 MG TAB PO PRN ×5 (04:38→22:34)
[2017-10-16 06:03] LABS: AUTOMATED NEUTROPHIL # 7.9 TH/MM3 (1.8-7.7); BASOPHIL % 0.4 % (0.0-2.0); HEMOGLOBIN 15.5 GM/DL (13.0-17.0); LYMPH % 9.1 % (9.0-44.0); LYMPHOCYTE # 0.8 TH/MM3 (1.0-4.8); MEAN CELL VOLUME 84.5 FL (80.0-100.0); MEAN CORPUSCULAR HGB CONC 34.3 % (32.0-36.0); MEAN PLATELET VOLUME 8.4 FL (7.0-11.0); MONO % 2.7 % (0.0-8.0); MONOCYTE # 0.2 TH/MM3 (0-0.9); NEUT % 87.8 % (16.0-70.0); PLATELET COUNT 182 TH/MM3 (150-450); RED BLOOD COUNT 5.33 MIL/MM3 (4.50-5.90); RED CELL DISTRIBUTION WIDTH 13.9 % (11.6-17.2)
[2017-10-16 06:34] LABS: BICARBONATE 23.8 MEQ/L (21.0-32.0); CREATININE 1.27 MG/DL (0.60-1.30)
[2017-10-16 08:00] VITALS: BP 192/79; PULSE 73; RESP 19; TEMP 97.4; O2SAT 96
[2017-10-16] MEDS: BACLOFEN 10 MG TAB PO SCH ×2 (08:42→22:20)
[2017-10-16] MEDS: PRAVASTATIN SOD 40 MG TAB PO SCH (08:42)
[2017-10-16] MEDS: METOPROLOL TARTRATE 50 MG TAB PO SCH ×2 (08:42→22:20)
[2017-10-16] MEDS: INSULIN ASPART SUPPLEMENTAL SCALE SQ SCH ×4 (08:43→22:34)
[2017-10-16] MEDS: DOCUSATE SODIUM 50 MG/SENNA 8.6 MG TAB PO SCH ×2 (08:43→22:20)
[2017-10-16] MEDS: SODIUM CHLORIDE 0.9% FLUSH 10 ML FLUSH IV FLUSH SCH ×2 (08:43→22:20)
[2017-10-16 12:00] VITALS: BP 136/69; PULSE 74; RESP 19; TEMP 98.4; O2SAT 94
--- NOTE | 2017-10-16 12:30 | EKG ---
Date Performed: 10/15/2017 Time Performed: 15:26:37 PTAGE: 72 years EKG: Normal Sinus rhythm NONSPECIFIC ST & T-WAVE ABNORMALITY ABNORMAL RHYTHM ECG PREVIOUS TRACING : 05/08/2016 06.37 Compared to the prior study, nonspecific ST-T changes have improved. DOCTOR: Diomedes Holliday Interpretating Date/Time 10/16/2017 12:25:20
--- NOTE | 2017-10-16 13:59 | HHI.PR ---
Subjective Remarks Follow-up renal insufficiency, diabetes. The patient denies pain currently. Denies chest pain or dyspnea. He is speaking with the nurse for hyperbaric therapy. Objective Vitals Vital Signs Date Time Temp Pulse Resp B/P (MAP) Pulse Ox O2 Delivery O2 Flow Rate FiO2 10/16/17 12:00 98.4 74 19 136/69 (91) 94 10/16/17 08:00 97.4 73 19 192/79 (116) 96 10/16/17 04:00 99.2 80 20 140/76 (97) 96 10/16/17 00:00 98.0 70 20 154/74 (100) 96 10/15/17 20:00 97.4 80 20 122/65 (84) 98 10/15/17 19:00 82 12 144/74 (97) 95 Room Air 10/15/17 18:45 86 12 140/74 (96) 98 Room Air 10/15/17 18:34 98.0 89 22 168/82 (110) 99 Nasal Cannula 2 10/15/17 16:00 97.6 74 19 154/89 (110) 97 I/O 10/15/17 10/15/17 10/15/17 10/16/17 10/16/17 10/16/17 07:00 15:00 23:00 07:00 15:00 23:00 Intake Total 200 ml 100 ml 825 ml 100 ml 500 ml Output Total 1500 ml 5 ml Balance -1300 ml 100 ml 820 ml 100 ml 500 ml Intake Oral 0 ml IV Total 200 ml 100 ml 475 ml 100 ml 500 ml Other 350 ml Output Urine Total 1500 ml Estimated Blood Loss 5 ml # Voids 3 4 # Bowel Movements 0 1 Result Diagram: 10/16/17 0500 10/16/17 0500 Imaging Last Impressions Foot X-Ray 10/15/17 0000 Signed Impressions: Service Date/Time: September 10:08 - CONCLUSION: There is a soft tissue swelling adjacent to the fifth metatarsophalangeal joint with a faint nondisplaced racture which may all be postsurgical. Tyrel Corral MD Objective Remarks General: No acute distress. Heart: Regular rate and rhythm. No murmur. Lungs: Clear to auscultation bilaterally. No wheezes, rales, or rhonchi. Breathing is nonlabored. Abdomen: Soft, nontender, nondistended. Extremities: No lower extremity edema. Psych: Alert and oriented. Extremities: Right foot in a splint. Neuro: Normal speech. No focal deficits noted. Procedures 10/15/17 right foot incision, drainage, debridement with partial resection of the fifth metatarsal Urinary Catheter: No Vascular Central Line Catheter: No A/P Assessment and Plan 1. Right fifth metatarsal wound infection, failed outpatient therapy: Concern for osteomyelitis. Status post incision, drainage, debridement. Continue IV antibiotics. Unable to do MRI secondary to implanted bladder stimulator. Unable to do CT with contrast secondary to acute kidney injury. Blood cultures are negative so far. Wound culture is pending. Wound care physician consulted for arrangement of hyperbaric treatment. 2. Diabetes mellitus: Monitor Accu-Cheks and cover with sliding scale insulin. Oral hypoglycemic medications are on hold. 3. Acute kidney injury superimposed on chronic kidney disease stage II: Improved. Avoid nephrotoxins. 4. Hypertension: Continue metoprolol. Lisinopril on hold secondary to acute kidney injury. 5. Hyperlipidemia: Continue statin. 6. Coronary artery disease: Currently asymptomatic. Plavix on hold due to surgery. 7. DVT prophylaxis: Chemical prophylaxis on hold for surgical procedure. Mechanical prophylaxis contraindicated secondary to bilateral foot wounds. Discharge Planning Pending podiatry clearance. Dean Peng MD October 16, 2017 13:59
--- NOTE | 2017-10-16 14:57 | PD.WOU.CON ---
Patient Intake Consult Requested by Primary Care Physician Unknown Coded Allergies: No Known Allergies (Verified Adverse Reaction, Unknown, 10/14/17) Vital Signs Date Time Temp Pulse Resp B/P (MAP) Pulse Ox O2 Delivery O2 Flow Rate FiO2 10/16/17 12:00 98.4 74 19 136/69 (91) 94 10/16/17 08:00 97.4 73 19 192/79 (116) 96 10/16/17 04:00 99.2 80 20 140/76 (97) 96 10/16/17 00:00 98.0 70 20 154/74 (100) 96 10/15/17 20:00 97.4 80 20 122/65 (84) 98 10/15/17 19:00 82 12 144/74 (97) 95 Room Air 10/15/17 18:45 86 12 140/74 (96) 98 Room Air 10/15/17 18:34 98.0 89 22 168/82 (110) 99 Nasal Cannula 2 10/15/17 16:00 97.6 74 19 154/89 (110) 97 Lab and Radiology Results Radiology Last Impressions Foot X-Ray 10/15/17 0000 Signed Impressions: Service Date/Time: September 10:08 - CONCLUSION: There is a soft tissue swelling adjacent to the fifth metatarsophalangeal joint with a faint nondisplaced racture which may all be postsurgical. MD Edgar Villanueva Karla A. MD October 16, 2017 14:57
[2017-10-16 15:40] VITALS: BP 148/86; PULSE 72; RESP 20; TEMP 97.4; O2SAT 99
--- NOTE | 2017-10-16 16:39 | PD.POD ---
Subjective Pain score: 0 Remarks Doing well, not sleeping much Past Med/Surg/Social History Social History Smoking Status: Former Smoker Objective Vital Signs Vital Signs Date Time Temp Pulse Resp B/P (MAP) Pulse Ox O2 Delivery O2 Flow Rate FiO2 10/16/17 15:40 97.4 72 20 148/86 (106) 99 10/16/17 12:00 98.4 74 19 136/69 (91) 94 10/16/17 08:00 97.4 73 19 192/79 (116) 96 10/16/17 04:00 99.2 80 20 140/76 (97) 96 10/16/17 00:00 98.0 70 20 154/74 (100) 96 10/15/17 20:00 97.4 80 20 122/65 (84) 98 10/15/17 19:00 82 12 144/74 (97) 95 Room Air 10/15/17 18:45 86 12 140/74 (96) 98 Room Air 10/15/17 18:34 98.0 89 22 168/82 (110) 99 Nasal Cannula 2 Coded Allergies: No Known Allergies (Verified Adverse Reaction, Unknown, 10/14/17) Medications and IVs Administered Medications Medications (Trade) Dose Ordered Sig/Beverley Route PRN Reason Start Time Stop Time Status Last Admin Dose Admin Sodium Chloride (NS Flush) 2 ml UNSCH PRN IV FLUSH FLUSH AFTER USING IV ACCESS 10/14/17 17:45 10/16/17 04:23 Sodium Chloride (NS Flush) 2 ml BID IV FLUSH 10/14/17 21:00 10/15/17 20:22 Acetaminophen/ Hydrocodone Bitart ([place] 5-325 Mg) 1 tab Q4H PRN PO pain 5-10 10/14/17 17:45 10/16/17 12:49 Insulin Aspart (NovoLOG SUPPLEMENTAL SCALE) 1 ACHS SLIDING SCALE SQ 10/14/17 21:00 10/16/17 12:47 Piperacillin Sod/ Tazobactam Sod 100 ml @ 200 mls/hr Q6H IV 10/14/17 22:00 10/16/17 10:02 Baclofen (Lioresal) 10 mg BID PO 10/14/17 21:00 10/16/17 08:42 Metoprolol Tartrate (Lopressor) 50 mg BID PO 10/14/17 21:00 10/16/17 08:42 Pravastatin Sodium (Pravachol) 40 mg DAILY PO 10/15/17 09:00 10/16/17 08:42 Vancomycin HCl 1750 mg/Sodium Chloride 517.5 ml @ 250 mls/hr Q18H IV 10/15/17 12:00 10/16/17 04:23 Artificial Tears (Tears Naturale Opth Soln) 1 drop Q4H PRN RIGHT EYE eye irritation 10/15/17 21:30 10/15/17 22:00 Other Results Laboratory Tests Test 10/15/17 07:14 10/16/17 05:00 White Blood Count 8.4 TH/MM3 9.0 TH/MM3 Red Blood Count 5.33 MIL/MM3 5.33 MIL/MM3 Hemoglobin 15.4 GM/DL 15.5 GM/DL Hematocrit 45.6 % 45.0 % Mean Corpuscular Volume 85.7 FL 84.5 FL Mean Corpuscular Hemoglobin 28.9 PG 29.0 PG Mean Corpuscular Hemoglobin Concent 33.7 % 34.3 % Red Cell Distribution Width 14.8 % 13.9 % Platelet Count 154 TH/MM3 182 TH/MM3 Mean Platelet Volume 8.3 FL 8.4 FL Neutrophils (%) (Auto) 57.9 % 87.8 % Lymphocytes (%) (Auto) 27.0 % 9.1 % Monocytes (%) (Auto) 11.5 % 2.7 % Eosinophils (%) (Auto) 2.6 % 0.0 % Basophils (%) (Auto) 1.0 % 0.4 % Neutrophils # (Auto) 4.9 TH/MM3 7.9 TH/MM3 Lymphocytes # (Auto) 2.3 TH/MM3 0.8 TH/MM3 Monocytes # (Auto) 1.0 TH/MM3 0.2 TH/MM3 Eosinophils # (Auto) 0.2 TH/MM3 0.0 TH/MM3 Basophils # (Auto) 0.1 TH/MM3 0.0 TH/MM3 CBC Comment DIFF FINAL DIFF FINAL Differential Comment Laboratory Tests Test 10/14/17 20:08 10/15/17 07:14 10/16/17 05:00 Lactic Acid Level 2.6 mmol/L Blood Urea Nitrogen 21 MG/DL 21 MG/DL Creatinine 1.32 MG/DL 1.27 MG/DL Random Glucose 135 MG/DL 247 MG/DL Calcium Level 8.7 MG/DL 9.0 MG/DL Sodium Level 138 MEQ/L 135 MEQ/L Potassium Level 4.3 MEQ/L 4.8 MEQ/L Chloride Level 103 MEQ/L 99 MEQ/L Carbon Dioxide Level 23.3 MEQ/L 23.8 MEQ/L Anion Gap 12 MEQ/L 12 MEQ/L Estimat Glomerular Filtration Rate 54 ML/MIN 56 ML/MIN Microbiology Date/Time Source Procedure Growth Status 10/14/17 15:35 Blood Peripheral Aerobic Blood Culture - Preliminary NO GROWTH IN 2 DAYS Resulted 10/14/17 15:35 Blood Peripheral Anaerobic Blood Culture - Preliminary NO GROWTH IN 2 DAYS Resulted 10/14/17 15:25 Blood Peripheral Aerobic Blood Culture - Preliminary NO GROWTH IN 2 DAYS Resulted 10/14/17 15:25 Blood Peripheral Anaerobic Blood Culture - Preliminary NO GROWTH IN 2 DAYS Resulted 10/15/17 17:50 Wound Foot Fungal Smear - Final NO FUNGAL ELEMENTS SEEN. Resulted 10/15/17 17:50 Wound Foot Fungal Culture Pending Resulted 10/15/17 17:50 Wound Foot Acid Fast Stain Pending Worksheet 10/15/17 17:50 Wound Foot Mycobacterial Culture Pending Worksheet 10/15/17 17:50 Wound Foot Gram Stain - Final Resulted 10/15/17 17:50 Wound Culture - Preliminary Group D Enterococcus Resulted Path pending Physical Exam General appearance: comfortable Nutritional status: normal Orientation: alert and oriented x3 Chest appearance: normal Respiratory effort: FINDINGS: normal Details Right lower extremity: Splint clean dry and intact good range of motion of digits capillary fill time within normal limits. Left foot bandage intact no strikethrough good range of motion of digits good capillary fill time. Bilateral sensation decreased below the ankles consistent with baseline Assessment & Plan A/P Right foot ulcer infection osteomyelitis fifth metatarsal fracture Left foot ulcer status post EHL lengthening and exostectomy distal phalanx. Reinforced the need for the patient to be nonweightbearing of the right lower extremity. We will change bandage tomorrow, awaiting bone pathology, recommend IV antibiotics until pathology returns. Pb Constantino DPM October 16, 2017 16:39
[2017-10-16 20:00] VITALS: BP 156/81; PULSE 77; RESP 20; TEMP 98.1; O2SAT 94
[2017-10-16] MEDS ORDERED: PHARMACY ORDERED LAB ONE (23:45)
[2017-10-17] VITALS: BP 132/79; PULSE 59; RESP 20; TEMP 97.9; O2SAT 96
[2017-10-17] MEDS: VANCOMYCIN INJ 1,750 MG in SODIUM CHLORID 0.9% 500 ML INJ 500 ML IV SCH (00:46)
[2017-10-17] MEDS: PIPERACIL-TAZO 4.5 GM PREMIX 100 ML IV SCH ×4 (04:48→20:45)
[2017-10-17] MEDS: ACETAMINOPHEN/HYDROcodone 325 MG/5 MG TAB PO PRN ×3 (04:49→16:13)
[2017-10-17 08:00] VITALS: BP 167/80; PULSE 51; RESP 16; TEMP 97.5; O2SAT 95
[2017-10-17] MEDS: INSULIN ASPART SUPPLEMENTAL SCALE SQ SCH ×4 (08:00→20:44)
[2017-10-17] MEDS: BACLOFEN 10 MG TAB PO SCH ×2 (08:37→20:45)
[2017-10-17] MEDS: DOCUSATE SODIUM 50 MG/SENNA 8.6 MG TAB PO SCH ×2 (08:37→20:45)
[2017-10-17] MEDS: METOPROLOL TARTRATE 50 MG TAB PO SCH ×2 (08:37→20:45)
[2017-10-17] MEDS: PRAVASTATIN SOD 40 MG TAB PO SCH (08:37)
[2017-10-17] MEDS: SODIUM CHLORIDE 0.9% FLUSH 10 ML FLUSH IV FLUSH SCH ×2 (08:39→20:45)
--- NOTE | 2017-10-17 11:04 | PD.POD ---
Subjective Pain score: 0 Remarks Doing well, not sleeping much Past Med/Surg/Social History Social History Smoking Status: Former Smoker Objective Vital Signs Vital Signs Date Time Temp Pulse Resp B/P (MAP) Pulse Ox O2 Delivery O2 Flow Rate FiO2 10/17/17 08:00 97.5 51 16 167/80 (109) 95 10/17/17 00:00 97.9 59 20 132/79 (96) 96 10/16/17 20:00 98.1 77 20 156/81 (106) 94 10/16/17 15:40 97.4 72 20 148/86 (106) 99 10/16/17 12:00 98.4 74 19 136/69 (91) 94 Coded Allergies: No Known Allergies (Verified Adverse Reaction, Unknown, 10/14/17) Medications and IVs Administered Medications Medications (Trade) Dose Ordered Sig/Beverley Route PRN Reason Start Time Stop Time Status Last Admin Dose Admin Sodium Chloride (NS Flush) 2 ml UNSCH PRN IV FLUSH FLUSH AFTER USING IV ACCESS 10/14/17 17:45 10/16/17 04:23 Sodium Chloride (NS Flush) 2 ml BID IV FLUSH 10/14/17 21:00 10/17/17 08:39 Acetaminophen/ Hydrocodone Bitart ([place] 5-325 Mg) 1 tab Q4H PRN PO pain 5-10 10/14/17 17:45 10/17/17 08:38 Insulin Aspart (NovoLOG SUPPLEMENTAL SCALE) 1 ACHS SLIDING SCALE SQ 10/14/17 21:00 10/17/17 08:00 Piperacillin Sod/ Tazobactam Sod 100 ml @ 200 mls/hr Q6H IV 10/14/17 22:00 10/17/17 08:39 Baclofen (Lioresal) 10 mg BID PO 10/14/17 21:00 10/17/17 08:37 Metoprolol Tartrate (Lopressor) 50 mg BID PO 10/14/17 21:00 10/17/17 08:37 Pravastatin Sodium (Pravachol) 40 mg DAILY PO 10/15/17 09:00 10/17/17 08:37 Artificial Tears (Tears Naturale Opth Soln) 1 drop Q4H PRN RIGHT EYE eye irritation 10/15/17 21:30 10/15/17 22:00 Other Results Laboratory Tests Test 10/16/17 05:00 White Blood Count 9.0 TH/MM3 Red Blood Count 5.33 MIL/MM3 Hemoglobin 15.5 GM/DL Hematocrit 45.0 % Mean Corpuscular Volume 84.5 FL Mean Corpuscular Hemoglobin 29.0 PG Mean Corpuscular Hemoglobin Concent 34.3 % Red Cell Distribution Width 13.9 % Platelet Count 182 TH/MM3 Mean Platelet Volume 8.4 FL Neutrophils (%) (Auto) 87.8 % Lymphocytes (%) (Auto) 9.1 % Monocytes (%) (Auto) 2.7 % Eosinophils (%) (Auto) 0.0 % Basophils (%) (Auto) 0.4 % Neutrophils # (Auto) 7.9 TH/MM3 Lymphocytes # (Auto) 0.8 TH/MM3 Monocytes # (Auto) 0.2 TH/MM3 Eosinophils # (Auto) 0.0 TH/MM3 Basophils # (Auto) 0.0 TH/MM3 CBC Comment DIFF FINAL Differential Comment Laboratory Tests Test 10/16/17 05:00 Blood Urea Nitrogen 21 MG/DL Creatinine 1.27 MG/DL Random Glucose 247 MG/DL Calcium Level 9.0 MG/DL Sodium Level 135 MEQ/L Potassium Level 4.8 MEQ/L Chloride Level 99 MEQ/L Carbon Dioxide Level 23.8 MEQ/L Anion Gap 12 MEQ/L Estimat Glomerular Filtration Rate 56 ML/MIN Microbiology Date/Time Source Procedure Growth Status 10/14/17 15:35 Blood Peripheral Aerobic Blood Culture - Preliminary NO GROWTH IN 2 DAYS Resulted 10/14/17 15:35 Blood Peripheral Anaerobic Blood Culture - Preliminary NO GROWTH IN 2 DAYS Resulted 10/14/17 15:25 Blood Peripheral Aerobic Blood Culture - Preliminary NO GROWTH IN 2 DAYS Resulted 10/14/17 15:25 Blood Peripheral Anaerobic Blood Culture - Preliminary NO GROWTH IN 2 DAYS Resulted 10/15/17 17:50 Wound Foot Fungal Smear - Final NO FUNGAL ELEMENTS SEEN. Resulted 10/15/17 17:50 Wound Foot Fungal Culture Pending Resulted 10/15/17 17:50 Wound Foot Acid Fast Stain - Final NO ACID FAST BACILLI SEEN Resulted 10/15/17 17:50 Wound Foot Mycobacterial Culture Pending Resulted 10/15/17 17:50 Wound Foot Gram Stain - Final Resulted 10/15/17 17:50 Wound Culture - Preliminary Group D Enterococcus Resulted Bone path pending Exam-Podiatry Constitutional Nutritional status: normal Orientation: alert and oriented x3 Musculoskeletal Exam Details Left foot- lateral incision 5th met with minor opening, redness is minimal, no pus no ischemia no bone exposed Right foot- bandage to hallux clean dry and intact BL LE feet are warm good CFT to digits, sensation decrease to light below Bl ankles Assessment & Plan A/P Right foot ulcer infection osteomyelitis fifth metatarsal fracture Left foot ulcer status post EHL lengthening and exostectomy distal phalanx. Doing well bandage changed, may need SNF for a few weeks due to the non Wb status of the right, awaiting bone pathology, recommend IV antibiotics until pathology returns.Fu 1-2 days reviewed possible sleep aid with Pb Finnegan DPM October 17, 2017 11:04
[2017-10-17 12:00] VITALS: BP 152/76; PULSE 55; RESP 16; TEMP 97.8; O2SAT 97
[2017-10-17] MEDS: VANCOMYCIN INJ 1,500 MG in SODIUM CHLORID 0.9% 500 ML INJ 500 ML IV SCH (12:00)
--- NOTE | 2017-10-17 14:45 | HHI.PR ---
Subjective Remarks Follow up osteomyelitis, foot wound. Patient states that he is not sleeping at night. No pain at this time. Denies dyspnea. Objective Vitals Vital Signs Date Time Temp Pulse Resp B/P (MAP) Pulse Ox O2 Delivery O2 Flow Rate FiO2 10/17/17 12:00 97.8 55 16 152/76 (101) 97 10/17/17 08:00 97.5 51 16 167/80 (109) 95 10/17/17 00:00 97.9 59 20 132/79 (96) 96 10/16/17 20:00 98.1 77 20 156/81 (106) 94 10/16/17 15:40 97.4 72 20 148/86 (106) 99 I/O 10/16/17 10/16/17 10/16/17 10/17/17 10/17/17 10/17/17 07:00 15:00 23:00 07:00 15:00 23:00 Intake Total 100 ml 500 ml 717.5 ml Balance 100 ml 500 ml 717.5 ml IV Total 100 ml 500 ml 717.5 ml # Voids 4 # Bowel Movements 1 Result Diagram: 10/16/17 0500 10/16/17 0500 Imaging Last Impressions Foot X-Ray 10/15/17 0000 Signed Impressions: Service Date/Time: September 10:08 - CONCLUSION: There is a soft tissue swelling adjacent to the fifth metatarsophalangeal joint with a faint nondisplaced racture which may all be postsurgical. Tyrel Corral MD Objective Remarks General: No acute distress. Heart: Regular rate and rhythm. No murmur. Lungs: Clear to auscultation bilaterally. No wheezes, rales, or rhonchi. Breathing is nonlabored. Abdomen: Soft, nontender, nondistended. Extremities: No lower extremity edema. Psych: Alert and oriented. Extremities: Right foot in a splint. Neuro: Normal speech. No focal deficits noted. Procedures 10/15/17 right foot incision, drainage, debridement with partial resection of the fifth metatarsal Urinary Catheter: No Vascular Central Line Catheter: No A/P Assessment and Plan 1. Right fifth metatarsal wound infection, failed outpatient therapy: Concern for osteomyelitis. Status post incision, drainage, debridement. Continue IV antibiotics. Unable to do MRI secondary to implanted bladder stimulator. Unable to do CT with contrast secondary to acute kidney injury. Blood cultures are negative so far. Wound culture is growing Group D enterococcus, sensitivities are pending. Wound care physician consulted for arrangement of hyperbaric treatment. Discussed with Dr. Constantino. 2. Diabetes mellitus: Monitor Accu-Cheks and cover with sliding scale insulin. Oral hypoglycemic medications are on hold. 3. Acute kidney injury superimposed on chronic kidney disease stage II: Improved. Avoid nephrotoxins. 4. Hypertension: Continue metoprolol. Lisinopril on hold secondary to acute kidney injury. 5. Hyperlipidemia: Continue statin. 6. Coronary artery disease: Currently asymptomatic. Plavix on hold due to surgery. 7. DVT prophylaxis: Chemical prophylaxis on hold for surgical procedure. Mechanical prophylaxis contraindicated secondary to bilateral foot wounds. Discharge Planning Pending podiatry clearance, biopsy results. Dean Peng MD October 17, 2017 14:45
[2017-10-17 16:00] VITALS: BP 126/59; PULSE 68; RESP 16; TEMP 97.5; O2SAT 97
[2017-10-17 20:00] VITALS: BP 159/66; PULSE 54; RESP 17; TEMP 97.6; O2SAT 95
[2017-10-17] MEDS ORDERED: diphenhydrAMINE HCL 25 MG CAP PO PRN (21:00)
[2017-10-18] VITALS: BP 150/82; PULSE 75; RESP 17; TEMP 98; O2SAT 95
[2017-10-18] MEDS: VANCOMYCIN INJ 1,500 MG in SODIUM CHLORID 0.9% 500 ML INJ 500 ML IV SCH ×2 (00:16→13:37)
[2017-10-18] MEDS: ACETAMINOPHEN/HYDROcodone 325 MG/5 MG TAB PO PRN ×5 (00:21→22:10)
[2017-10-18] MEDS: PIPERACIL-TAZO 4.5 GM PREMIX 100 ML IV SCH ×4 (04:33→20:15)
[2017-10-18 08:00] VITALS: BP 157/87; PULSE 64; RESP 17; TEMP 97.2; O2SAT 98
[2017-10-18] MEDS: INSULIN ASPART SUPPLEMENTAL SCALE SQ SCH ×4 (08:00→20:15)
[2017-10-18] MEDS: SODIUM CHLORIDE 0.9% FLUSH 10 ML FLUSH IV FLUSH SCH ×2 (08:50→20:16)
[2017-10-18] MEDS: DOCUSATE SODIUM 50 MG/SENNA 8.6 MG TAB PO SCH ×2 (08:50→20:15)
[2017-10-18] MEDS: METOPROLOL TARTRATE 50 MG TAB PO SCH ×2 (08:52→20:15)
[2017-10-18] MEDS: BACLOFEN 10 MG TAB PO SCH ×2 (08:52→20:15)
[2017-10-18] MEDS: PRAVASTATIN SOD 40 MG TAB PO SCH (08:53)
[2017-10-18 08:58] LABS: CREATININE 1.1 MG/DL (0.60-1.30)
[2017-10-18] MEDS ORDERED: PHARMACY ORDERED LAB ONE (11:45)
[2017-10-18 12:00] VITALS: BP 166/78; PULSE 68; RESP 17; TEMP 98; O2SAT 97
--- NOTE | 2017-10-18 13:06 | PD.POD ---
Subjective Pain score: 1 Remarks Doing well, PT did not go well, patient was tired and wish to try PT possibly Thursday. Pain controlled by meds, apparently sleeping a little better Past Med/Surg/Social History Social History Smoking Status: Former Smoker Objective Vital Signs Vital Signs Date Time Temp Pulse Resp B/P (MAP) Pulse Ox O2 Delivery O2 Flow Rate FiO2 10/18/17 12:00 98.0 68 17 166/78 (107) 97 10/18/17 08:00 97.2 64 17 157/87 (110) 98 10/18/17 00:00 98.0 75 17 150/82 (104) 95 10/17/17 20:00 97.6 54 17 159/66 (97) 95 10/17/17 16:00 97.5 68 16 126/59 (81) 97 Coded Allergies: No Known Allergies (Verified Adverse Reaction, Unknown, 10/14/17) Medications and IVs Administered Medications Medications (Trade) Dose Ordered Sig/[place]everley Route PRN Reason Start Time Stop Time Status Last Admin Dose Admin Sodium Chloride (NS Flush) 2 ml UNSCH PRN IV FLUSH FLUSH AFTER USING IV ACCESS 10/14/17 17:45 10/16/17 04:23 Sodium Chloride (NS Flush) 2 ml BID IV FLUSH 10/14/17 21:00 10/18/17 08:50 Acetaminophen/ Hydrocodone Bitart ([place] 5-325 Mg) 1 tab Q4H PRN PO pain 5-10 10/14/17 17:45 10/18/17 11:44 Senna/Docusate Sodium (Kay-Colace) 1 tab BID PO 10/14/17 21:00 10/17/17 20:45 Insulin Aspart (NovoLOG SUPPLEMENTAL SCALE) 1 ACHS SLIDING SCALE SQ 10/14/17 21:00 10/18/17 12:50 Piperacillin Sod/ Tazobactam Sod 100 ml @ 200 mls/hr Q6H IV 10/14/17 22:00 10/18/17 11:44 Baclofen (Lioresal) 10 mg BID PO 10/14/17 21:00 10/18/17 08:52 Metoprolol Tartrate (Lopressor) 50 mg BID PO 10/14/17 21:00 10/18/17 08:52 Pravastatin Sodium (Pravachol) 40 mg DAILY PO 10/15/17 09:00 10/18/17 08:53 Artificial Tears (Tears Naturale Opth Soln) 1 drop Q4H PRN RIGHT EYE eye irritation 10/15/17 21:30 10/15/17 22:00 Vancomycin HCl 1500 mg/Sodium Chloride 515 ml @ 250 mls/hr Q12H IV 10/17/17 12:00 10/18/17 00:16 Diphenhydramine HCl (Benadryl) 25 mg HS PRN PO INSOMNIA 10/17/17 21:00 10/18/17 00:16 Other Results Laboratory Tests Test 10/18/17 07:25 Creatinine 1.10 MG/DL Estimat Glomerular Filtration Rate 66 ML/MIN Microbiology Date/Time Source Procedure Growth Status 10/15/17 17:50 Wound Foot Fungal Smear - Final NO FUNGAL ELEMENTS SEEN. Resulted 10/15/17 17:50 Wound Foot Fungal Culture Pending Resulted 10/15/17 17:50 Wound Foot Acid Fast Stain - Final NO ACID FAST BACILLI SEEN Resulted 10/15/17 17:50 Wound Foot Mycobacterial Culture Pending Resulted 10/15/17 17:50 Wound Foot Gram Stain - Final Resulted 10/15/17 17:50 Wound Culture - Preliminary Enterococcus Faecalis Resulted Bone pathology pending right foot Physical Exam Nutritional status: normal Orientation: alert and oriented x3 Chest appearance: normal Respiratory effort: FINDINGS: normal Details Left foot-splint clean dry and intact no breakdown of heel splint Right foot- bandage to hallux clean dry and intact BL LE feet are warm good CFT to digits, sensation decrease to light below Bl ankles Assessment & Plan A/P Right foot ulcer infection osteomyelitis fifth metatarsal fracture Left foot ulcer status post EHL lengthening and exostectomy distal phalanx. Doing well bandage to be changed tomorrow. Awaiting pathology, for patient to receive hyperbaric oxygen, he will need to be discharged home not SNF, awaiting physical therapy evaluation and treatment - Mon? to see if the patient can go home as opposed to residential facility. Anticipate the need for long-term IV antibiotics await infectious disease recommendations. Patient to be evaluated by Dr. Garcia tomorrow. Pb Constantino DPM October 18, 2017 13:06
--- NOTE | 2017-10-18 13:08 | HHI.PR ---
Subjective Remarks Follow up diabetes, osteomyelitis. Patient requesting increased dose of Benadryl for sleep. Pain is controlled. No other complaints at this time. Objective Vitals Vital Signs Date Time Temp Pulse Resp B/P (MAP) Pulse Ox O2 Delivery O2 Flow Rate FiO2 10/18/17 12:00 98.0 68 17 166/78 (107) 97 10/18/17 08:00 97.2 64 17 157/87 (110) 98 10/18/17 00:00 98.0 75 17 150/82 (104) 95 10/17/17 20:00 97.6 54 17 159/66 (97) 95 10/17/17 16:00 97.5 68 16 126/59 (81) 97 I/O 10/17/17 10/17/17 10/17/17 10/18/17 10/18/17 10/18/17 07:00 15:00 23:00 07:00 15:00 23:00 Intake Total 717.5 ml 660 ml 340 ml Output Total 1400 ml 500 ml Balance 717.5 ml -740 ml -160 ml Intake Oral 560 ml 240 ml IV Total 717.5 ml 100 ml 100 ml Output Urine Total 1400 ml 500 ml # Voids 2 # Bowel Movements 1 2 Result Diagram: 10/16/17 0500 10/18/17 0725 Imaging Last Impressions Foot X-Ray 10/15/17 0000 Signed Impressions: Service Date/Time: September 10:08 - CONCLUSION: There is a soft tissue swelling adjacent to the fifth metatarsophalangeal joint with a faint nondisplaced racture which may all be postsurgical. Tyrel Corral MD Objective Remarks General: No acute distress. Heart: Regular rate and rhythm. No murmur. Lungs: Clear to auscultation bilaterally. No wheezes, rales, or rhonchi. Breathing is nonlabored. Abdomen: Soft, nontender, nondistended. Extremities: No lower extremity edema. Psych: Alert and oriented. Extremities: Right foot in a splint. Neuro: Normal speech. No focal deficits noted. Procedures 10/15/17 right foot incision, drainage, debridement with partial resection of the fifth metatarsal Urinary Catheter: No Vascular Central Line Catheter: No A/P Assessment and Plan 1. Right fifth metatarsal wound infection, osteomyelitis: Status post incision , drainage, debridement. Continue IV antibiotics. Unable to do MRI secondary to implanted bladder stimulator. Unable to do CT with contrast secondary to acute kidney injury. Blood cultures are negative so far. Wound culture is growing Group D enterococcus, sensitivities are pending. Wound care physician consulted for arrangement of hyperbaric treatment. Discussed with Dr. Constantino. 2. Diabetes mellitus: Monitor Accu-Cheks and cover with sliding scale insulin. Restart glipizide. 3. Acute kidney injury superimposed on chronic kidney disease stage II: Improved. Avoid nephrotoxins. 4. Hypertension: Continue metoprolol. Lisinopril on hold secondary to acute kidney injury. 5. Hyperlipidemia: Continue statin. 6. Coronary artery disease: Currently asymptomatic. Restart Plavix. 7. DVT prophylaxis: Chemical prophylaxis on hold for surgical procedure. Mechanical prophylaxis contraindicated secondary to bilateral foot wounds. Discharge Planning Pending podiatry clearance, biopsy results. Dean Peng MD October 18, 2017 13:08
[2017-10-18 16:00] VITALS: BP 130/63; PULSE 77; RESP 16; TEMP 98; O2SAT 96
[2017-10-18] MEDS: glipiZIDE 5 MG TAB PO SCH (16:54)
[2017-10-18 20:00] VITALS: BP 137/72; PULSE 79; RESP 17; TEMP 97.6; O2SAT 96
[2017-10-18] MEDS: diphenhydrAMINE HCL 25 MG CAP PO PRN (22:10)
[2017-10-19] MEDS: VANCOMYCIN INJ 1,750 MG in SODIUM CHLORID 0.9% 500 ML INJ 500 ML IV SCH ×2 (01:56→14:25)
[2017-10-19] MEDS: PIPERACIL-TAZO 4.5 GM PREMIX 100 ML IV SCH ×4 (04:32→21:14)
[2017-10-19] MEDS: ACETAMINOPHEN/HYDROcodone 325 MG/5 MG TAB PO PRN (06:29)
[2017-10-19] MEDS: glipiZIDE 5 MG TAB PO SCH ×2 (06:30→17:45)
[2017-10-19 08:00] VITALS: BP 143/81; PULSE 77; RESP 18; TEMP 97.7; O2SAT 96
[2017-10-19] MEDS: DOCUSATE SODIUM 50 MG/SENNA 8.6 MG TAB PO SCH ×3 (09:00→21:15)
[2017-10-19] MEDS: INSULIN ASPART SUPPLEMENTAL SCALE SQ SCH ×4 (09:27→21:00)
[2017-10-19] MEDS: METOPROLOL TARTRATE 50 MG TAB PO SCH ×2 (09:28→21:15)
[2017-10-19] MEDS: SODIUM CHLORIDE 0.9% FLUSH 10 ML FLUSH IV FLUSH SCH ×2 (09:28→21:00)
[2017-10-19] MEDS: BACLOFEN 10 MG TAB PO SCH ×2 (09:28→21:15)
[2017-10-19] MEDS: PRAVASTATIN SOD 40 MG TAB PO SCH (09:29)
[2017-10-19] MEDS: CLOPIDOGREL 75 MG TAB PO SCH (09:29)
--- NOTE | 2017-10-19 11:15 | HHI.PR ---
Subjective Remarks Follow-up osteomyelitis, diabetes mellitus. Patient slept better with increased dose of Benadryl last night. Pain is well controlled at this time. Denies chest pain or dyspnea. Objective Vitals Vital Signs Date Time Temp Pulse Resp B/P (MAP) Pulse Ox O2 Delivery O2 Flow Rate FiO2 10/19/17 08:00 97.7 77 18 143/81 (101) 96 10/18/17 20:00 97.6 79 17 137/72 (93) 96 10/18/17 16:00 98.0 77 16 130/63 (85) 96 10/18/17 12:00 98.0 68 17 166/78 (107) 97 I/O 10/18/17 10/18/17 10/18/17 10/19/17 10/19/17 10/19/17 07:00 15:00 23:00 07:00 15:00 23:00 Intake Total 340 ml 100 ml 1915 ml 857 ml Output Total 500 ml 1400 ml 2050 ml 200 ml Balance -160 ml 100 ml 515 ml -1193 ml -200 ml Intake Oral 240 ml 1200 ml 240 ml IV Total 100 ml 100 ml 715 ml 617 ml Output Urine Total 500 ml 1400 ml 2050 ml 200 ml # Voids 2 # Bowel Movements 2 2 Result Diagram: 10/16/17 0500 10/18/17 0725 Imaging Last Impressions Foot X-Ray 10/15/17 0000 Signed Impressions: Service Date/Time: September 10:08 - CONCLUSION: There is a soft tissue swelling adjacent to the fifth metatarsophalangeal joint with a faint nondisplaced racture which may all be postsurgical. Tyrel Corral MD Objective Remarks General: No acute distress. Heart: Regular rate and rhythm. No murmur. Lungs: Clear to auscultation bilaterally. No wheezes, rales, or rhonchi. Breathing is nonlabored. Abdomen: Soft, nontender, nondistended. Extremities: No lower extremity edema. Psych: Alert and oriented. Extremities: Right foot in a splint. Neuro: Normal speech. No focal deficits noted. Procedures 10/15/17 right foot incision, drainage, debridement with partial resection of the fifth metatarsal Urinary Catheter: No Vascular Central Line Catheter: No A/P Assessment and Plan 1. Right fifth metatarsal wound infection, osteomyelitis: Status post incision , drainage, debridement. Continue IV antibiotics. Unable to do MRI secondary to implanted bladder stimulator. Unable to do CT with contrast secondary to acute kidney injury. Blood cultures are negative so far. Wound culture is growing Group D enterococcus, sensitivities noted. Wound care physician consulted for arrangement of hyperbaric treatment. Patient complaining of increased pain. Will increase [place]. 2. Diabetes mellitus: Monitor Accu-Cheks and cover with sliding scale insulin. Glucose has been elevated. Continue glipizide. Metformin on hold. 3. Acute kidney injury superimposed on chronic kidney disease stage II: Improved. Avoid nephrotoxins. 4. Hypertension: Continue metoprolol. Lisinopril on hold secondary to acute kidney injury. 5. Hyperlipidemia: Continue statin. 6. Coronary artery disease: Currently asymptomatic. Continue Plavix. 7. DVT prophylaxis: Mechanical prophylaxis contraindicated secondary to bilateral foot wounds. Discharge Planning Pending podiatry clearance, biopsy results. Dean Peng MD October 19, 2017 11:15
[2017-10-19 12:00] VITALS: BP 142/86; PULSE 47; RESP 17; TEMP 97.7; O2SAT 96
[2017-10-19] MEDS: ACETAMINOPHEN/HYDROcodone 325 MG/7.5 MG TAB PO PRN ×2 (12:04→21:21)
[2017-10-19 16:00] VITALS: BP 164/83; PULSE 77; RESP 17; TEMP 97.3; O2SAT 96
--- NOTE | 2017-10-19 19:25 | HHI.PR ---
Subjective Remarks Patient seen bedside, no complaints of nausea vomiting fevers or chills. Patient resting comfortably states he does not want to put pressure on his bilateral foot secondary to just having surgery. Objective Vital Signs Date Time Temp Pulse Resp B/P (MAP) Pulse Ox O2 Delivery O2 Flow Rate FiO2 10/19/17 16:00 97.3 77 17 164/83 (110) 96 10/19/17 12:00 97.7 47 17 142/86 (104) 96 10/19/17 08:00 97.7 77 18 143/81 (101) 96 10/18/17 20:00 97.6 79 17 137/72 (93) 96 I/O 10/18/17 10/18/17 10/18/17 10/19/17 10/19/17 10/19/17 07:00 15:00 23:00 07:00 15:00 23:00 Intake Total 340 ml 100 ml 1915 ml 857 ml 1540 ml Output Total 500 ml 1400 ml 2050 ml 200 ml 1100 ml Balance -160 ml 100 ml 515 ml -1193 ml -200 ml 440 ml Intake Oral 240 ml 1200 ml 240 ml 1440 ml IV Total 100 ml 100 ml 715 ml 617 ml 100 ml Output Urine Total 500 ml 1400 ml 2050 ml 200 ml 1100 ml # Voids 2 # Bowel Movements 2 2 0 Result Diagram: 10/16/17 0500 10/18/17 0725 Imaging Last Impressions Foot X-Ray 10/15/17 0000 Signed Impressions: Service Date/Time: September 10:08 - CONCLUSION: There is a soft tissue swelling adjacent to the fifth metatarsophalangeal joint with a faint nondisplaced racture which may all be postsurgical. Tyrel Corral MD Other Results Microbiology Date/Time Source Procedure Growth Status 10/14/17 15:35 Blood Peripheral Aerobic Blood Culture - Final NO GROWTH IN 5 DAYS Complete 10/14/17 15:35 Blood Peripheral Anaerobic Blood Culture - Final NO GROWTH IN 5 DAYS Complete 10/15/17 17:50 Wound Foot Fungal Smear - Final NO FUNGAL ELEMENTS SEEN. Resulted 10/15/17 17:50 Wound Foot Fungal Culture Pending Resulted Objective Remarks Right foot lateral fifth metatarsal head incision with skin well coapted and sutures intact. No drainage noted, no surrounding erythema or edema noted. Left foot distal tip of hallux incision line intact with skin well coapted and sutures intact. Plantar aspect of hallux with skin well coapted and sutures intact. No drainage noted, no surrounding erythema or edema noted. Medications and IVs Current Medications Medications (Trade) Dose Ordered Sig/Bever[place] Route Start Time Stop Time Status Last Admin (NS Flush) 2 ml UNSCH PRN IV FLUSH 10/14/17 17:45 10/16/17 04:23 (NS Flush) 2 ml BID IV FLUSH 10/14/17 21:00 10/19/17 09:28 (Reglan Inj) 5 mg Q6H PRN IV PUSH 10/14/17 17:45 (Tylenol) 650 mg Q6H PRN PO 10/14/17 17:45 (Morphine Inj) 2 mg Q3H PRN IV PUSH 10/14/17 17:45 (Narcan Inj) 0.4 mg UNSCH PRN IV PUSH 10/14/17 17:45 (Kay-Colace) 1 tab BID PO 10/14/17 21:00 10/18/17 20:15 (Milk Of Magnesia Liq) 30 ml Q12H PRN PO 10/14/17 17:45 (Senokot) 17.2 mg Q12H PRN PO 10/14/17 17:45 (Dulcolax Supp) 10 mg DAILY PRN RECTAL 10/14/17 17:45 (Lactulose Liq) 30 ml DAILY PRN PO 10/14/17 17:45 (D50w (Vial) Inj) 50 ml UNSCH PRN IV PUSH 10/14/17 17:45 (Glucagon Inj) 1 mg UNSCH PRN OTHER 10/14/17 17:45 (NovoLOG SUPPLEMENTAL SCALE) 1 ACHS SLIDING SCALE SQ 10/14/17 21:00 10/19/17 17:00 Pharmacy Profile Note 0 ml @ 0 mls/hr UNSCH OTHER 10/14/17 17:45 Piperacillin Sod/ Tazobactam Sod 100 ml @ 200 mls/hr Q6H IV 10/14/17 22:00 10/19/17 17:45 (Lioresal) 10 mg BID PO 10/14/17 21:00 10/19/17 09:28 (Lopressor) 50 mg BID PO 10/14/17 21:00 10/19/17 09:28 (Pravachol) 40 mg DAILY PO 10/15/17 09:00 10/19/17 09:29 (Tears Naturale Opth Soln) 1 drop Q4H PRN RIGHT EYE 10/15/17 21:30 10/15/17 22:00 (Plavix) 75 mg DAILY PO 10/19/17 09:00 10/19/17 09:29 (Glucotrol) 10 mg BIDAC PO 10/18/17 16:00 10/19/17 17:45 Vancomycin HCl 1750 mg/Sodium Chloride 517.5 ml @ 250 mls/hr Q12H IV 10/19/17 01:00 10/19/17 14:25 ([facility] Ordered Lab Info) SPECIFIC LAB TO BE ... ONCE ONCE .XX 10/20/17 12:45 10/20/17 12:46 (Benadryl) 50 mg HS PRN PO 10/18/17 21:15 10/18/17 22:10 (Heparin Inj) 5,000 units Q12HR SQ 10/19/17 21:00 ([place] 7.5-325 Mg) 1 tab Q4H PRN PO 10/19/17 11:15 10/19/17 12:04 Assessment and Plan Assessment and Plan 72-year-old male status post right foot incision drainage debridement, partial resection of the 5th metatarsal Patient examined and evaluated with all questions answered Dressing to bilateral lower extremity changed with Xeroform and dry sterile dressing Surgical pathology positive for osteomyelitis and proximal clearing margin IV antibiotics per infectious disease Patient may be discharged once IV antibiotic recommendations have been made, hyperbaric oxygen therapy has been arranged as well as possible SNF placement Patient is to remain nonweightbearing to right lower extremity, heel weightbearing in surgical shoe to left lower extremity Jackie Garcia DPM October 19, 2017 19:25
[2017-10-19 20:00] VITALS: BP 172/83; PULSE 89; RESP 19; TEMP 98.7; O2SAT 97
[2017-10-19] MEDS: diphenhydrAMINE HCL 25 MG CAP PO PRN (21:14)
[2017-10-19] MEDS: HEPARIN SODIUM - SQ 10,000 UNITS/ML VIAL SQ SCH (21:15)
[2017-10-20] VITALS: BP 115/87; PULSE 64; RESP 19; TEMP 98.5; O2SAT 96
[2017-10-20] MEDS: VANCOMYCIN INJ 1,750 MG in SODIUM CHLORID 0.9% 500 ML INJ 500 ML IV SCH (01:19)
[2017-10-20] MEDS: glipiZIDE 5 MG TAB PO SCH ×2 (05:24→18:27)
[2017-10-20] MEDS: PIPERACIL-TAZO 4.5 GM PREMIX 100 ML IV SCH ×2 (05:25→09:40)
[2017-10-20] MEDS: ACETAMINOPHEN/HYDROcodone 325 MG/7.5 MG TAB PO PRN ×5 (06:22→23:16)
[2017-10-20 07:58] LABS: CREATININE 1.01 MG/DL (0.60-1.30)
[2017-10-20 08:00] VITALS: BP 152/87; PULSE 66; RESP 18; TEMP 97.4; O2SAT 97
[2017-10-20] MEDS: DOCUSATE SODIUM 50 MG/SENNA 8.6 MG TAB PO SCH ×2 (09:00→21:00)
[2017-10-20] MEDS: CLOPIDOGREL 75 MG TAB PO SCH (09:40)
[2017-10-20] MEDS: METOPROLOL TARTRATE 50 MG TAB PO SCH ×2 (09:40→21:54)
[2017-10-20] MEDS: PRAVASTATIN SOD 40 MG TAB PO SCH (09:40)
[2017-10-20] MEDS: SODIUM CHLORIDE 0.9% FLUSH 10 ML FLUSH IV FLUSH SCH ×2 (09:41→21:00)
[2017-10-20] MEDS: BACLOFEN 10 MG TAB PO SCH ×2 (09:41→21:55)
[2017-10-20] MEDS: INSULIN ASPART SUPPLEMENTAL SCALE SQ SCH ×4 (09:41→21:54)
[2017-10-20] MEDS: HEPARIN SODIUM - SQ 10,000 UNITS/ML VIAL SQ SCH ×2 (09:41→21:56)
[2017-10-20 12:00] VITALS: BP 124/76; PULSE 66; RESP 18; TEMP 97.6; O2SAT 95
--- NOTE | 2017-10-20 12:00 | HHI.PR ---
Subjective Remarks The patient was resting comfortably in bed. He had questions about his diabetes. He said he has been minimally ambulatory. Objective Vitals Vital Signs Date Time Temp Pulse Resp B/P (MAP) Pulse Ox O2 Delivery O2 Flow Rate FiO2 10/20/17 08:00 97.4 66 18 152/87 (108) 97 10/20/17 00:00 98.5 64 19 115/87 (96) 96 10/19/17 22:30 18 10/19/17 20:00 98.7 89 19 172/83 (112) 97 10/19/17 16:00 97.3 77 17 164/83 (110) 96 10/19/17 12:00 97.7 47 17 142/86 (104) 96 I/O 10/19/17 10/19/17 10/19/17 10/20/17 10/20/17 10/20/17 07:00 15:00 23:00 07:00 15:00 23:00 Intake Total 857 ml 1540 ml 240 ml Output Total 2050 ml 200 ml 1100 ml 2600 ml Balance -1193 ml -200 ml 440 ml -2360 ml Intake Oral 240 ml 1440 ml 240 ml IV Total 617 ml 100 ml Output Urine Total 2050 ml 200 ml 1100 ml 2600 ml # Bowel Movements 0 0 Result Diagram: 10/16/17 0500 10/20/17 0608 Imaging Last Impressions Foot X-Ray 10/15/17 0000 Signed Impressions: Service Date/Time: September 10:08 - CONCLUSION: There is a soft tissue swelling adjacent to the fifth metatarsophalangeal joint with a faint nondisplaced racture which may all be postsurgical. Tyrel Corral MD Objective Remarks General: No acute distress. Heart: Regular rate and rhythm. No murmur. Lungs: Clear to auscultation bilaterally. No wheezes, rales, or rhonchi. Breathing is nonlabored. Abdomen: Soft, nontender, nondistended. Extremities: No lower extremity edema. Right foot in splint. Psych: Alert and oriented. Neuro: Normal speech. No focal deficits noted. Procedures 10/15/17 right foot incision, drainage, debridement with partial resection of the fifth metatarsal A/P Assessment and Plan Right fifth metatarsal wound infection, osteomyelitis Status post incision, drainage, debridement. Unable to do MRI secondary to implanted bladder stimulator. Unable to do CT with contrast secondary to acute kidney injury. Blood cultures are negative so far. Wound culture is growing Enterococcus faecalis, sensitivities noted. - Wound care physician consulted for arrangement of hyperbaric treatment. - continue antibiotics per ID. - pain control with a bowel regimen. Diabetes mellitus Glucose has been elevated. - Continue glipizide. Metformin on hold. - ISS. - Add Levemir. Acute kidney injury Superimposed on chronic kidney disease stage II: Improved. - Avoid nephrotoxins. Hypertension Not well controlled. - Continue metoprolol. Add amlodipine. - Lisinopril on hold secondary to acute kidney injury. Coronary artery disease Currently asymptomatic. - Continue Plavix. DVT prophylaxis: Mechanical prophylaxis contraindicated secondary to bilateral foot wounds. All Velasquez DO October 20, 2017 12:00
[2017-10-20] MEDS: INSULIN DETEMIR 100 UNITS/ML VIAL SQ SCH (12:26)
[2017-10-20] MEDS ORDERED: PHARMACY ORDERED LAB ONE (12:45)
[2017-10-20] MEDS: VANCOMYCIN INJ 2,000 MG in SODIUM CHLORID 0.9% 500 ML INJ 500 ML IV SCH (15:08)
[2017-10-20] MEDS: amLODIPine BESYLATE 5 MG TAB PO SCH (15:12)
[2017-10-20 16:00] VITALS: BP 134/84; PULSE 66; RESP 18; TEMP 97.5; O2SAT 98
--- NOTE | 2017-10-20 16:59 | HHI.FF ---
Infusion Therapy Location of Infusion Therapy: Home Health Care IV Infusion Order Patient Information Patient Weight 100 kg Diagnosis: (1) Osteomyelitis of ankle or foot, left, acute Coded Allergies: No Known Allergies (Verified Adverse Reaction, Unknown, 10/14/17) Administer Medication Vancomycin 2 grams IV q 12 hours Stop Treatment: Nov 26, 2017 Additional Information Venous access: PICC Line Additional Instructions [x] Peripheral flush and dressing changes per protocol [x] Implanted port and central telephone lines repairer: * Implanted port: 10 ml Normal Saline followed by 5 ml Heparin 100 units/ml Heparin flush after each use and monthly to maintain. [] May leave port accessed during therapy. [] May leave peripheral site accessed for duration of therapy. [x] If patient has SOB or respiratory distress, check oxygen saturation. If less than 90% or clinical signs of respiratory distress, administer oxygen at 2 L/min. via nasal cannula and notify physician. [x] Anaphylaxis/Reaction orders: * Stop infusion. * Keep IV line open with saline flush. * Notify physician. * Monitor vital signs every 15 minutes until symptoms resolve. * Check Oxygen saturation; Oxygen at 2 L/min. via nasal cannula if less than 90% or clinical signs of respiratory distress. * Administer diphenhydramine (Benadryl) 25 mg IV STAT, (unless patient has received as pre-med). May repeat once, if necessary. * Solu-Cortef 250 mg IVP over 30-60 seconds, use 100 mg vials for each dissolution. * Epinephrine (1mg/1 ml) 0.3 mg subcutaneously or IVP now with any signs of respiratory distress. * Check with physician for new additional pre-med orders if patient is re- challenged or re-treated. [x] May remove PICC line when treatment complete, after confirming with Physician. [x] If the patient is admitted to the hospital, the ED, or transferred via [facility] , complete transfer form including medication reconciliation order sheet. Laboratory Tests Weekly Labs: Vancomycin Trough Additional Information BMP every 3 days while on vancomycin. Call with vancomycin level greater than 20 or creatinine greater than 1.6 Hold vancomycin if creatinine greater than 2.[address] Jones . Fax number [phone]. Follow-up with Dr. Henderson in 1 week. Javier Jones MD October 20, 2017 16:59
--- NOTE | 2017-10-20 17:54 | MB ---
cc: Javier Jones MD, Franklyn F MD DATE: 10/20/2017 REQUESTING PHYSICIAN: Dr. Velasquez REASON FOR VISIT: Osteomyelitis. Need for long-term antibiotics. HISTORY OF PRESENT ILLNESS: This is a 72-year-old white male who presented to the ED on 10/14 with right fifth metatarsal wound. The patient underwent right fifth metatarsal surgery 2 weeks ago and developed increasing redness and drainage from the wound. The orthopedist apparently saw him in the office and had purulent drainage expressed from the wound and he was sent to the Emergency Department for evaluation. The patient has had several wound infections in the past. He underwent debridement and partial resection of the fifth metatarsal of the right foot. He was noted to have an abscess and also a fracture at the fifth metatarsal region. A culture was taken and it came back showing Enterococcus faecalis. Pathology of the specimen from surgery shows fifth metatarsal head bone with acute osteomyelitis. The fifth metatarsal margin showed dense bone with plasma cells and reactive new bone formation on the surface suspicious for chronic osteomyelitis. The patient is nonweightbearing. He is currently awake and alert and in no acute distress. He has no complaints. His white count was 12.4 on admission. It is now down to normal. He has no fevers. Consultation requested for antibiotics for outpatient treatment. The patient i being considered for outpatient hyperbaric oxygen treatments as well so underwent left hallux flexor hallucis longus tendon lengthening and exostectomy. PAST MEDICAL HISTORY: Coronary artery disease, history of coronary stent, history of coronary bypass graft surgery, diabetes, hypertension, hyperlipidemia, benign prostatic hypertrophy, peripheral vascular disease, osteoarthritis, bladder stimulator, arthroscopic surgery of the right shoulder. PAST SURGICAL HISTORY: Cholecystectomy, appendectomy. ALLERGIES: NO KNOWN DRUG ALLERGIES. MEDICATIONS: 1. Vancomycin. 2. Piperacillin/tazobactam 3. Norvasc. 4. Levemir. 5. [place] 7.5 p.r.n. 6. Plavix. 7. Benadryl 8. Glucotrol. 9. Pravachol. 10. Kay-Colace. 11. Baclofen. 12. Lopressor. SOCIAL HISTORY: The patient is . No tobacco. The patient quit smoking cigarettes 20 years ago. Occasional rare alcohol use. No illicit drugs. FAMILY HISTORY: Noncontributory. REVIEW OF SYSTEMS: Negative except for mild pain in the right leg. PHYSICAL EXAMINATION: GENERAL: This is a well-developed male who is in no acute distress. He is awake, alert and oriented. VITAL SIGNS: Includes temperature of 97.6, BP 124/76, respirations 18, heart rate 66. HEENT: Head is atraumatic. Extraocular movements are grossly intact. Pupils reactive to light. No icterus. Oropharynx moist mucosa. No visible lesions. NECK: Supple without adenopathy. LUNGS: Clear breath sounds. HEART: Regular S1, S2. No rubs. No rubs. No gallops. ABDOMEN: Bowel sounds present, obese, soft, nontender. RECTAL: Not performed. EXTREMITIES: The right leg is wrapped in a surgical dressing. No visible edema of the leg. The left foot is wrapped in a surgical dressing and also no visible edema. SKIN: No diffuse rash. NEUROLOGIC: No gross focal findings. PSYCHIATRIC: The patient calm and cooperative. LABORATORY DATA: WBC 9.0, platelets 182, 87% neutrophils, hemoglobin 15.5. Estimated GFR 73, creatinine 1.01. Vancomycin level has been monitored by pharmacy and last level today was 12.0 trough. Vancomycin was being administered at 1750 mg IV every 12 hours and was changed to 2 grams IV every 12 hours. IMPRESSION: Osteomyelitis of the right foot with pathology specimen from surgery positive for osteomyelitis. Culture with Enterococcus faecalis. The patient is status post incision and drainage of abscess of the right 5th metatarsal and partial resection of the fifth metatarsal. RECOMMENDATIONS: Intravenous vancomycin for 6 weeks to continue until 11/26/2017. Vancomycin level to be monitored during treatment. PICC line will be ordered for intravenous antibiotics. Followup appointment with Dr. Patito Henderson for infectious disease followup in 1 week to manage the vancomycin and infection follow up. Orders and labs are written for the intravenous antibiotics. Thank you for this consultation. Further recommendations will be given if necessary on followup, but from my standpoint arrangements can be made for outpatient treatment. MD EDGARDO Land/ , 05:16 PM , 05:53 PM
[2017-10-20 20:00] VITALS: BP 126/70; PULSE 78; RESP 20; TEMP 97.3; O2SAT 97
[2017-10-20] MEDS: diphenhydrAMINE HCL 25 MG CAP PO PRN (23:16)
[2017-10-21] VITALS: BP 122/77; PULSE 69; RESP 20; TEMP 98.1; O2SAT 96
[2017-10-21] MEDS: VANCOMYCIN INJ 2,000 MG in SODIUM CHLORID 0.9% 500 ML INJ 500 ML IV SCH ×2 (03:00→15:03)
[2017-10-21] MEDS: glipiZIDE 5 MG TAB PO SCH ×2 (06:24→16:00)
[2017-10-21] MEDS: ACETAMINOPHEN/HYDROcodone 325 MG/7.5 MG TAB PO PRN ×4 (06:27→20:29)
[2017-10-21 08:00] VITALS: BP 136/71; PULSE 71; RESP 17; TEMP 98; O2SAT 97
[2017-10-21] MEDS: METOPROLOL TARTRATE 50 MG TAB PO SCH ×2 (08:00→20:30)
[2017-10-21] MEDS: CLOPIDOGREL 75 MG TAB PO SCH (08:00)
[2017-10-21] MEDS: PRAVASTATIN SOD 40 MG TAB PO SCH (08:00)
[2017-10-21] MEDS: BACLOFEN 10 MG TAB PO SCH ×2 (08:00→20:29)
[2017-10-21] MEDS: amLODIPine BESYLATE 5 MG TAB PO SCH (08:00)
[2017-10-21] MEDS: HEPARIN SODIUM - SQ 10,000 UNITS/ML VIAL SQ SCH ×2 (08:01→20:28)
[2017-10-21] MEDS: DOCUSATE SODIUM 50 MG/SENNA 8.6 MG TAB PO SCH ×2 (08:01→20:31)
[2017-10-21] MEDS: SODIUM CHLORIDE 0.9% FLUSH 10 ML FLUSH IV FLUSH SCH ×2 (08:01→20:31)
[2017-10-21] MEDS: INSULIN ASPART SUPPLEMENTAL SCALE SQ SCH ×4 (08:19→20:31)
[2017-10-21] MEDS: INSULIN DETEMIR 100 UNITS/ML VIAL SQ SCH (08:19)
[2017-10-21] MEDS ORDERED: SODIUM CHLORIDE 0.9% FLUSH 10 ML FLUSH IV FLUSH PRN (10:45)
[2017-10-21] MEDS ORDERED: WALKER WHEELS/F1 MIS (11:36)
--- NOTE | 2017-10-21 11:49 | HHI.PR ---
Subjective Remarks The patient was resting comfortably in bed. He said he had his PICC line placed. He wanted to know how often the antibiotics would be administered at home. He said his will be able to help him at home. He was hoping for discharge tomorrow. Discussed with nursing at the bedside. Objective Vitals Vital Signs Date Time Temp Pulse Resp B/P (MAP) Pulse Ox O2 Delivery O2 Flow Rate FiO2 10/21/17 08:00 98.0 71 17 136/71 (92) 97 10/21/17 00:00 98.1 69 20 122/77 (92) 96 10/20/17 20:00 97.3 78 20 126/70 (88) 97 10/20/17 16:00 97.5 66 18 134/84 (101) 98 10/20/17 12:00 97.6 66 18 124/76 (92) 95 I/O 10/20/17 10/20/17 10/20/17 10/21/17 10/21/17 10/21/17 07:00 15:00 23:00 07:00 15:00 23:00 Intake Total 240 ml 100 ml 1240 ml 600 ml Output Total 2600 ml 800 ml 1500 ml Balance -2360 ml 100 ml 440 ml -900 ml Intake Oral 240 ml 740 ml 600 ml IV Total 100 ml 500 ml Output Urine Total 2600 ml 800 ml 1500 ml # Voids 3 # Bowel Movements 0 0 Result Diagram: 10/20/17 0608 Imaging Last Impressions Foot X-Ray 10/15/17 0000 Signed Impressions: Service Date/Time: September 10:08 - CONCLUSION: There is a soft tissue swelling adjacent to the fifth metatarsophalangeal joint with a faint nondisplaced racture which may all be postsurgical. Tyrel Corral MD Objective Remarks General: No acute distress. Heart: Regular rate and rhythm. No murmur. Lungs: Clear to auscultation bilaterally. No wheezes, rales, or rhonchi. Breathing is nonlabored. Abdomen: Soft, nontender, nondistended. Extremities: No lower extremity edema. Right foot in splint. Psych: Alert and oriented. Neuro: Normal speech. No focal deficits noted. Procedures 10/15/17 right foot incision, drainage, debridement with partial resection of the fifth metatarsal A/P Assessment and Plan Right fifth metatarsal wound infection, osteomyelitis Status post incision, drainage, debridement. Unable to do MRI secondary to implanted bladder stimulator. Unable to do CT with contrast secondary to acute kidney injury. Blood cultures are negative so far. Wound culture is growing Enterococcus faecalis, sensitivities noted. ID consult appreciated. - Wound care physician consulted for arrangement of hyperbaric treatment. - continue antibiotics per ID. Will be on IV vancomycin until 11/26. - pain control with a bowel regimen. Diabetes mellitus Glucose has been elevated. - Continue glipizide. Metformin on hold. Resume upon discharge. - ISS. - Added Levemir. Acute kidney injury Superimposed on chronic kidney disease stage II: Improved. - Avoid nephrotoxins. Hypertension Not well controlled. - Continue metoprolol. Add amlodipine. - Lisinopril on hold secondary to acute kidney injury. Resume at discharge. Coronary artery disease Currently asymptomatic. - Continue Plavix. DVT prophylaxis: Mechanical prophylaxis contraindicated secondary to bilateral foot wounds. Discharge Planning Anticipate d/c with [facility] 10/22 All Velasquez DO October 21, 2017 11:49
[2017-10-21 12:00] VITALS: BP 134/72; PULSE 69; RESP 17; TEMP 97.2; O2SAT 97
[2017-10-21] MEDS ORDERED: COMMODE 3-IN-11 MIS (14:28)
[2017-10-21 16:00] VITALS: BP 140/71; PULSE 63; RESP 17; TEMP 98.1; O2SAT 96
[2017-10-21] MEDS ORDERED: VANC1000P IV (16:24)
[2017-10-21] MEDS ORDERED: AMLO5 PO (16:24)
[2017-10-21] MEDS ORDERED: HYDR-3580 PO (16:24)
[2017-10-21 20:00] VITALS: BP 146/81; PULSE 81; RESP 18; TEMP 98.4; O2SAT 96
[2017-10-22] VITALS: BP 131/75; PULSE 69; RESP 18; TEMP 97.2; O2SAT 96
[2017-10-22] MEDS: ACETAMINOPHEN/HYDROcodone 325 MG/7.5 MG TAB PO PRN ×3 (00:11→12:45)
[2017-10-22] MEDS: diphenhydrAMINE HCL 25 MG CAP PO PRN (00:11)
[2017-10-22] MEDS: VANCOMYCIN INJ 2,000 MG in SODIUM CHLORID 0.9% 500 ML INJ 500 ML IV SCH ×2 (02:44→15:04)
[2017-10-22] MEDS ORDERED: PHARMACY ORDERED LAB ONE (02:45)
[2017-10-22 06:12] LABS: CREATININE 0.86 MG/DL (0.60-1.30)
[2017-10-22] MEDS: glipiZIDE 5 MG TAB PO SCH ×2 (06:16→16:00)
[2017-10-22 08:00] VITALS: BP 135/78; PULSE 69; RESP 19; TEMP 98.4; O2SAT 95
[2017-10-22] MEDS: PRAVASTATIN SOD 40 MG TAB PO SCH (08:33)
[2017-10-22] MEDS: DOCUSATE SODIUM 50 MG/SENNA 8.6 MG TAB PO SCH (08:33)
[2017-10-22] MEDS: amLODIPine BESYLATE 5 MG TAB PO SCH (08:33)
[2017-10-22] MEDS: BACLOFEN 10 MG TAB PO SCH (08:33)
[2017-10-22] MEDS: HEPARIN SODIUM - SQ 10,000 UNITS/ML VIAL SQ SCH (08:33)
[2017-10-22] MEDS: CLOPIDOGREL 75 MG TAB PO SCH (08:33)
[2017-10-22] MEDS: METOPROLOL TARTRATE 50 MG TAB PO SCH (08:33)
[2017-10-22] MEDS: SODIUM CHLORIDE 0.9% FLUSH 10 ML FLUSH IV FLUSH SCH (08:34)
[2017-10-22] MEDS: INSULIN ASPART SUPPLEMENTAL SCALE SQ SCH ×3 (08:34→17:00)
[2017-10-22] MEDS: INSULIN DETEMIR 100 UNITS/ML VIAL SQ SCH (08:35)
[2017-10-22] MEDS ORDERED: SODIUM CHLORIDE 0.9% FLUSH 10 ML FLUSH IV FLUSH SCH (09:00)
--- NOTE | 2017-10-22 11:54 | HHI.FF ---
Face to Face Verification Diagnosis: (1) Osteomyelitis of ankle or foot, left, acute (2) Wound infection (3) Toe infection (4) Diabetes mellitus type 2, uncontrolled Home Health Nursing Order: Medical education Signs/symptoms of disease process Diabetic education Medication education-adverse effect Wound care and dressing changes Nursing assessment with vital signs Instructions: Dressing to bilateral lower extremity changed with Xeroform and dry sterile dressing I have seen patient Genaro Diggs, III on 10/22/17. My clinical findings support the need for the requested home health care services because: Ltd mobility - disease progression Deconditioned w/ increased weakness Limited ability to care for self High risk of falls Infection w/ risk of complications I certify that my clinical findings support that this patient is homebound because: Post-op weakness Unsteady gait/balance All Velasquez DO October 22, 2017 11:54
--- NOTE | 2017-10-22 11:56 | HHI.DCPOC ---
Discharge Care Plan Diagnosis: (1) Toe infection (2) Osteomyelitis of ankle or foot, left, acute (3) Diabetes mellitus type 2, uncontrolled (4) Wound infection Goals to Promote Your Health * To prevent worsening of your condition and complications * To maintain your health at the optimal level Directions to Meet Your Goals Take your medications as prescribed Follow your dietary instruction Follow activity as directed Keep your appointments as scheduled Take your immunizations and boosters as scheduled If your symptoms worsen call your PCP, if no PCP go to Urgent Care Center or Emergency Room Smoking is Dangerous to Your Health. Avoid second hand smoke Call the 24-hour hour crisis hotline for domestic abuse at All Velasquez DO October 22, 2017 11:56
[2017-10-22 12:00] VITALS: BP 121/65; PULSE 75; RESP 18; TEMP 97.5; O2SAT 95
--- NOTE | 2017-10-22 12:05 | HHI.DS ---
Discharge Summary Admission Date October 14, 2017 at 16:32 Discharge Date: October 22, 2017 Admitting Diagnosis wound infection (1) Toe infection ICD Code: L08.9 - Local infection of the skin and subcutaneous tissue, unspecified Diagnosis: Principal Status: Acute (2) Osteomyelitis of ankle or foot, left, acute ICD Code: M86.172 - Other acute osteomyelitis, left ankle and foot Diagnosis: Principal (3) Diabetes mellitus type 2, uncontrolled ICD Code: E11.9 - Diabetes mellitus type 2, uncontrolled Status: Chronic (4) Wound infection ICD Code: T14.8XXA - Other injury of unspecified body region, initial encounter ; L08.9 - Local infection of the skin and subcutaneous tissue, unspecified Diagnosis: Principal Status: Acute Procedures 10/15/17 right foot incision, drainage, debridement with partial resection of the fifth metatarsal Brief History - From Admission 72-year-old male with history of diabetes, hypertension, hyperlipidemia, CAD status post CABG and stent 1, BPH, bladder stimulator in place, presents after being sent from his controls technician Dr. Constantino's office for concern for infection s/ p surgery. Patient is status post left hallux exostectomy, right fifth metatarsal exostectomy, debridement of right foot ulcer with skin graft on by Dr. Constantino. The patient states he thought he was doing well postoperatively until he went for his two-week checkup today at Dr. Constantino's office when he was noted to have increasing erythema, edema, purulent drainage, and foul odor from his right fifth metatarsal surgical site. Patient does admit that recently he was working on his boat with increased physical activity , but otherwise denies any recent injury to his feet. He denies any recent fevers or chills. He reports compliance with his antibiotics; has been taking oral Bactrim bid since prior to the surgery. He denies any other medical complaints including no lightheadedness, dizziness, chest pain, palpitations, shortness of breath, or abdominal complaints. He reports a history of CABG in 1995, and repeat cardiac catheterization with 1 stent placed in May [address] Alvarado. He reports his last hemoglobin A1c was around 7 and his sugars are fairly well-controlled on his Jardiance and metformin. He also sees an front counter attendant. CBC/BMP: 10/22/17 0515 Significant Findings Laboratory Tests Test 10/20/17 06:08 10/20/17 12:51 10/22/17 02:45 10/22/17 05:15 Estimat Glomerular Filtration Rate 73 ML/MIN (>89) 88 ML/MIN (>89) Vancomycin Level Trough 12.0 MCG/ML (5.0-10.0) 18.3 MCG/ML (5.0-10.0) Imaging Last Impressions Foot X-Ray 10/15/17 0000 Signed Impressions: Service Date/Time: , October 15, 2017 10:08 - CONCLUSION: There is a soft tissue swelling adjacent to the fifth metatarsophalangeal joint with a faint nondisplaced racture which may all be postsurgical. Tyrel Corral MD PE at Discharge General: No acute distress. Heart: Regular rate and rhythm. No murmur. Lungs: Clear to auscultation bilaterally. No wheezes, rales, or rhonchi. Breathing is nonlabored. Abdomen: Soft, nontender, nondistended. Extremities: No lower extremity edema. Right foot in splint. Psych: Alert and oriented. Neuro: Normal speech. No focal deficits noted. Pt update on day of discharge The patient was feeling well. He was looking forward to going home. He had a list of questions which were answered. Discussed with nursing. Hospital Course Right fifth metatarsal wound infection, osteomyelitis Foot x ray showed: There is soft tissue swelling adjacent to the fifth metatarsophalangeal joint with a faint nondisplaced fracture. Podiatry was consulted. Status post incision, drainage, debridement. Unable to do MRI secondary to implanted bladder stimulator. Unable to do CT with contrast secondary to acute kidney injury. Wound culture grew Enterococcus faecalis. ID was consulted. Wound care physician was also consulted for arrangement of hyperbaric treatment. The pt will continue IV vancomycin until 11/26 per ID. The pt received pain control with a bowel regimen. He will follow up with podiatry and ID as an outpt. Home health care has been arranged. The pt will continue dressings and weightbearing status per podiatry. Diabetes mellitus Glucose has been elevated. We continued his home glipizide. Metformin was placed on hold. We added Levemir. The pt will resume his home regimen upon discharge. Hypertension/ [place] We continued metoprolol and added amlodipine. Lisinopril was on hold secondary to acute kidney injury. Will resume at the time of discharge as renal function has improved. Pt Condition on Discharge: Stable Discharge Disposition: Disch w/ Home Health Serv Discharge Time: > 30 minutes Discharge Instructions DIET: Follow Instructions for: Diabetic Diet Activities you can perform: See Additionl Instruction Other Activity Instructions: Patient is to remain nonweightbearing to right lower extremity, heel weightbearing in surgical shoe to left lower extremity Follow up Referrals: Appointment for Follow Up - [address] Patito Henderson PCP Follow-up - 1 Week with Pamella Albrecht Podiatry - 1 Week @ [facility] with Pb Constantino DPM New Orders: BASIC METABOLIC PROF - 2-3 Days VANCOMYCIN TROUGH - 1 Week New Medications: Commode 3-in-1 (Commode 3-in-1) 1 Mis Mis EA .XX DIRECTED, #1 0 Refills Vancomycin Inj (Vancomycin Inj) 1 Gram Inj 2000 MG IV Q12HR for Infection, #1 BAG 0 Refills Walker with Front Wheels (Walker with Front Wheels) 1 Mis Mis EA .XX DIRECTED, #1 0 Refills Amlodipine (Norvasc) 5 Mg Tab 5 MG PO DAILY for Blood Pressure Management, #30 TAB Hydrocodone/Acetaminophen (Hydrocodone-Acetamin 7.5-325) 7.5 Mg-325 Mg Tablet 1 TAB PO Q4H PRN for PAIN SCALE 5 TO 10 for 3 Days, #14 TAB Continued Medications: Baclofen (Baclofen) 10 Mg Tab 10 MG PO BID for Muscle Spasm, TAB 0 Refills Clopidogrel (Plavix) 75 Mg Tab 75 MG PO DAILY for Blood Clot Prevention, #30 TAB 0 Refills Famotidine-Calcium (Duo Fusion) 10-800 Mg Tab 10-800 MG PO BID Glipizide (Glipizide) 5 Mg Tab 10 MG PO BIDAC for Blood Sugar Management, #60 TAB 0 Refills Take 30 minutes before a meal Lisinopril (Lisinopril) 2.5 Mg Tab 2.5 MG PO DAILY, #30 TAB 0 Refills Metformin (Metformin) 1,000 Mg Tab 1000 MG PO BIDPC for Blood Sugar Management, #60 TAB 0 Refills With meals Metoprolol Tartrate (Metoprolol Tartrate) 50 Mg Tab 50 MG PO BID, #60 TAB 0 Refills Nitroglycerin SL (Nitroglycerin SL) 0.6 Mg Subl 0.6 MG SL DIRECTED PRN for CHEST PAIN, #100 TAB.SL 0 Refills ONE TABLET UNDER THE TONGUE NEEDED FOR CHEST PAIN, MAY REPEAT EVERY FIVE MINUTES FOR A TOTAL OF 3 DOSES OR CALL 911 IF NO RELIEF Simvastatin (Simvastatin) 20 Mg Tab 20 MG PO DAILY for Cholesterol Management, #30 TAB 0 Refills Discontinued Medications: Sulfamethoxazole-Trimethoprim (Bactrim DS) 800-160 Mg Tab 1 TAB PO BID for Infection, TAB 0 Refills All Velasquez DO October 22, 2017 12:05
[2017-10-22 16:00] VITALS: BP 148/78; PULSE 74; RESP 19; TEMP 97.3; O2SAT 97
== END 2017-10-22 17:45 | disposition home health service (06) | DRG 908 ==
LOC: NEPC 14:51 → NEDA 16:32 → N07B 19:20
PROVIDERS: ADMIT Hospitalist; ATTEND Hospitalist
PROC: 0S9M0ZZ Drainage of Right Metatarsal-Phalangeal Joint, Open Approach (ICD-10-PCS; 2017-10-15)
PROC: 0QBN0ZZ Excision of Right Metatarsal, Open Approach (ICD-10-PCS; principal; 2017-10-15 17:16)
PROC: 05HY33Z Insertion of Infusion Device into Upper Vein, Percutaneous Approach (ICD-10-PCS; 2017-10-20)
DX: T81.32XA Disruption of internal operation (surgical) wound, not elsewhere classified, initial encounter (principal); T81.4XXA Infection following a procedure, initial encounter; N17.9 Acute kidney failure, unspecified; M86.172 Other acute osteomyelitis, left ankle and foot; E11.22 Type 2 diabetes mellitus with diabetic chronic kidney disease; E11.51 Type 2 diabetes mellitus with diabetic peripheral angiopathy without gangrene; M86.9 Osteomyelitis, unspecified; L02.611 Cutaneous abscess of right foot; E11.621 Type 2 diabetes mellitus with foot ulcer; E11.69 Type 2 diabetes mellitus with other specified complication; B95.2 Enterococcus as the cause of diseases classified elsewhere; E78.5 Hyperlipidemia, unspecified; G47.33 Obstructive sleep apnea (adult) (pediatric); I12.9 Hypertensive chronic kidney disease with stage 1 through stage 4 chronic kidney disease, or unspecified chronic kidney disease; I25.10 Atherosclerotic heart disease of native coronary artery without angina pectoris; Z95.5 Presence of coronary angioplasty implant and graft; K21.9 Gastro-esophageal reflux disease without esophagitis; N18.2 Chronic kidney disease, stage 2 (mild); N40.0 Benign prostatic hyperplasia without lower urinary tract symptoms; Y83.8 Other surgical procedures as the cause of abnormal reaction of the patient, or of later complication, without mention of misadventure at the time of the procedure; Z91.19 Patient's noncompliance with other medical treatment and regimen; L08.89 Other specified local infections of the skin and subcutaneous tissue; E11.65 Type 2 diabetes mellitus with hyperglycemia; Z87.891 Personal history of nicotine dependence; Z95.1 Presence of aortocoronary bypass graft; Z90.49 Acquired absence of other specified parts of digestive tract; Z79.84 Long term (current) use of oral hypoglycemic drugs; Z79.02 Long term (current) use of antithrombotics/antiplatelets
CPT/HCPCS: 73630; 80048; 80053; 80202; 82565; 82948; 83605; 85025; 85652; 87015; 87040; 87070; 87077; 87102; 87116; 87186; 87205; 87206; 88304; 88305; 88307; 88311; 93005; 96365; J0131; J1100; J1580; J1642; J1644; J1815; J2370; J2405; J2543; J3010; J3370; J7030; J7040